=== PATIENT | male | born 1985 | race Caucasian/White ===

== ENCOUNTER 2017-11-30 15:25 | Emergency (ER) | payer BC, SELFPAY ==
[2017-11-30 15:59] VITALS: BP 142/73; PULSE 76; RESP 20; TEMP 36.9; O2SAT 97; BMI 28.8
--- NOTE | 2017-11-30 17:24 | HMH.EDUTC ---
[facility] – [place] Clinical Impression: History of herpes genitalis Herpes zoster Qualifiers: Herpes zoster complications: without complications Qualified Code(s): B02.9 - Zoster without complications Disposition: Home, Self-Care Condition on Discharge: Good Instructions: DI for Shingles, DI for Genital Herpes Additional Instructions: Read attached education Start anti-viral DANIELE. the sooner you start it the more effective it can be. Discussed transmission. Remember how to protect yourself and others. Avoid contact with the high risk population we discussed. we have provided you with a list of providers accepting patients. I would encourage you find him a new primary care provider and make an appt DANIELE as it can take weeks to get a new patient appointment. In the meantime, follow up in the clinic or ER for new, worsening or persistent symptoms. There is medication you can take daily to decrease outbreaks of genital herpes. You need to see a primary care provider for this. Prescriptions: Valacyclovir HCl [Valacyclovir] 1,000 mg PO Q8H #21 tab Time of Disposition: 17:46 Medical Decision Making Vital Signs: 11/30/17 15:59 11/30/17 17:53 Temperature 98.4 F 97.9 F Temperature Source Temporal Artery Scan Pulse Rate 76 Pulse Rate [Right Radial] 76 Respiratory Rate 20 16 Blood Pressure 130/68 Blood Pressure [Right Arm] 142/73 Blood Pressure Mean [Right Arm] 96 Blood Pressure Position [Right Arm] Sitting 02 Sat by Pulse Oximetry 97 Oxygen Delivery Method Room Air Room Air - Cali Inquiry Pt receiving controlled substance: No [facility] [place] HPI - General Stated complaint: rash on side Time Seen by Provider: 11/30/17 17:24 Mode of Arrival: Family Vehicle Source of Information: Patient Limitations: No Limitations Description of Symptoms (Recalled from Triage Doc. by RN): PT C/O RASH ON RIGHT SIDE OF BODY. HEENT Symptoms (Recalled from RN notes): No Resp Symptoms (Recalled from RN notes): No Skin Symptoms (Recalled from RN notes): Yes (RASH ON RIGHT SIDE OF BODY) MS Symptoms (Recalled from RN notes): No Functional Status (Recalled from RN notes): NA - History of Present Illness Provider Complaint: c/o rash to right flank first noticed yesterday. uncomfortable and a little itchy . Mother thinks it is shingles. wonders if could be related to history of genital herpes because appears similar to those. Denies any current outbreak. Approx 3-4 outbreaks a year. Never takes medications for outbreaks. No PCP. Typically before outbreaks, right gorin lymphnode is tender . Noticed that day before yesterday but rather than gential rash, noticed flank rash. No treatment before arrival. Had chicken pox as a child. No new contacts, foods, medications. No one else with rash. Initially denied any recent trauma or stress but then recalled repeated low back strains over the last 2-3 months with most recent on Saturday. - Related Data Home Medications Medication Instructions Recorded Confirmed Levothyroxine Sodium 200 mcg PO DAILY 11/30/17 11/30/17 [Levothyroxine 200mcg (0.2mg) Tab] Previous Rx's Medication Instructions Recorded Valacyclovir HCl [Valacyclovir] 1,000 mg PO Q8H #21 tab 11/30/17 Allergies Allergy/AdvReac Type Severity Reaction Status Date / Time No Known Allergies Allergy Verified 11/30/17 15:46 - Worker's Comp Is this a Worker's Comp case?: No [facility] History I have reviewed the patient's past medical history: Yes Other Medical History: Reports: Hypothyroidism, Other (genital herpes) Other Surgeries: Yes: Other (partial thyroidectomy) - *Social History Smoking Status: Never smoker Alcohol Intake: never - Psychiatric History Expresses thoughts of harming self/others: None Suicide Plan Description: No Plan ROS Obtained: Yes Systems reviewed as appropriate & no additional complaints - Constitutional Constitutional: Denies body ache, Denies chills, Denies fatigue, Denies fever(s), D
--- NOTE | 2017-11-30 17:38 | ED_ITS ---
[facility] [place] Clinical Impression: History of herpes genitalis Herpes zoster Qualifiers: Herpes zoster complications: without complications Qualified Code(s): B02.9 - Zoster without complications Disposition: Home, Self-Care Condition on Discharge: Good Instructions: DI for Shingles, DI for Genital Herpes Additional Instructions: Read attached education Start anti-viral DANIELE. the sooner you start it the more effective it can be. Discussed transmission. Remember how to protect yourself and others. Avoid contact with the high risk population we discussed. we have provided you with a list of providers accepting patients. I would encourage you find him a new primary care provider and make an appt DANIELE as it can take weeks to get a new patient appointment. In the meantime, follow up in the clinic or ER for new, worsening or persistent symptoms. There is medication you can take daily to decrease outbreaks of genital herpes. You need to see a primary care provider for this. Prescriptions: Valacyclovir HCl [Valacyclovir] 1,000 mg PO Q8H #21 tab Time of Disposition: 17:46 Medical Decision Making Vital Signs: 11/30/17 15:59 11/30/17 17:53 Temperature 98.4 F 97.9 F Temperature Source Temporal Artery Scan Pulse Rate 76 Pulse Rate [Right Radial] 76 Respiratory Rate 20 16 Blood Pressure 130/68 Blood Pressure [Right Arm] 142/73 Blood Pressure Mean [Right Arm] 96 Blood Pressure Position [Right Arm] Sitting 02 Sat by Pulse Oximetry 97 Oxygen Delivery Method Room Air Room Air - Cali Inquiry Pt receiving controlled substance: No [facility] [place] - General Stated complaint: rash on side Time Seen by Provider: 11/30/17 17:24 Mode of Arrival: Family Vehicle Source of Information: Patient Limitations: No Limitations Description of Symptoms (Recalled from Triage Doc. by RN): PT C/O RASH ON RIGHT SIDE OF BODY. HEENT Symptoms (Recalled from RN notes): No Resp Symptoms (Recalled from RN notes): No Skin Symptoms (Recalled from RN notes): Yes (RASH ON RIGHT SIDE OF BODY) MS Symptoms (Recalled from RN notes): No Functional Status (Recalled from RN notes): NA - History of Present Illness Provider Complaint: c/o rash to right flank first noticed yesterday. uncomfortable and a little itchy . Mother thinks it is shingles. wonders if could be related to history of genital herpes because appears similar to those. Denies any current outbreak. Approx 3-4 outbreaks a year. Never takes medications for outbreaks. No PCP. Typically before outbreaks, right gorin lymphnode is tender . Noticed that day before yesterday but rather than gential rash, noticed flank rash. No treatment before arrival. Had chicken pox as a child. No new contacts, foods, medications. No one else with rash. Initially denied any recent trauma or stress but then recalled repeated low back strains over the last 2-3 months with most recent on Saturday. - Related Data Home Medications Medication Instructions Recorded Confirmed Levothyroxine Sodium 200 mcg PO DAILY 11/30/17 11/30/17 [Levothyroxine 200mcg (0.2mg) Tab] Previous Rx's Medication Instructions Recorded Valacyclovir HCl [Valacyclovir] 1,000 mg PO Q8H #21 tab 11/30/17 Allergies Allergy/AdvReac Type Severity Reaction Status Date / Time No Known Allergies Allergy Verified 11/30/17 15:46 - Worker's Comp Is this a Work
[2017-11-30 17:53] VITALS: BP 130/68; PULSE 76; RESP 16; TEMP 36.6; O2SAT 100
== END 2017-11-30 17:55 | disposition home or self-care (01) ==
PROVIDERS: Emergency Provider Nurse Practitioner Family
DX: B02.9 Zoster without complications (principal)
CPT/HCPCS: 99201

== ENCOUNTER 2018-06-12 09:00 | Outpatient (RCR) | payer BC, SELFPAY | END 2018-06-12 09:01 | disposition home or self-care (01) | LOC: PT 09:00 | PROVIDERS: Visit Provider Orthopaedic Surgery | DX: M54.5 Low back pain (principal) | CPT/HCPCS: 97010; 97014; 97033; 97110; 97140; 97163; 97164; G0283 ==

== ENCOUNTER → 2018-06-25 08:54 | Outpatient (REF) | payer BC, SELFPAY ==
[2018-06-25 14:04] LABS: Basophils % 0.3 % (0.1-2.0); Eosinophils # 0.4 K/mm3 (0.0-0.4); Eosinophils % 6.9 % (0.1-12.0); Hematocrit 47.6 % (42.0-52.0); Hemoglobin 16.2 g/dL (14.1-18.0); Lymphocytes # 1.2 K/mm3 (0.7-4.5); Lymphocytes % 23.1 K/mm3 (10-50); Mean Corpuscular Hemoglobin 30.4 pg (27.0-31.2); Mean Corpuscular Volume 89.5 fl (80-94); Mean Platelet Volume 7.4 fl (7.4-10.4); Monocytes # 0.4 K/mm3 (0.1-1.0); Monocytes % 8.4 % (1.7-9.3); Neutrophils # 3.2 K/mm3 (1.8-7.8); Neutrophils % 61.3 % (37.0-80.0); Platelet Count 267 K/mm3 (142-424); Red Blood Count 5.31 M/mm3 (4.60-6.20); White Blood Count 5.3 K/mm3 (4.8-10.8)
[2018-06-25 14:14] LABS: Alanine Aminotransferase 35 U/L (12-78); Albumin Level 4.3 gm/dL (3.4-5.0); Albumin/Globulin Ratio 1.3 (1.1-1.8); Alkaline Phosphatase 64 U/L (46-116); Anion Gap 13.4 mEq/L (5-15); Aspartate Amino Transferase 13 U/L (15-37); Bilirubin,Total 0.7 mg/dL (0.2-1.0); Blood Urea Nitrogen 11 mg/dL (7-18); Calcium 9.7 mg/dL (8.5-10.1); Carbon Dioxide 29 mmol/L (21.0-32.0); Chloride 104 mmol/L (98-107); Chol/HDL Ratio 3.4 (1-3.5); Cholesterol 127 mg/dL (140-200); Creatinine,Serum 1.13 mg/dL (0.70-1.30); Estimated Glomerular Filt Rate 75 ml/min (>60); GFR (African American) 90 ML/MIN (>60); Globulin 3.3 gm/dl (1.3-3.2); Glucose 73 mg/dL (74-106); HDL Cholesterol 37 mg/dL (27-67); LDL Cholesterol 60 mg/dL (0-130); Potassium 4.4 mmoL/L (3.5-5.1); Sodium 142 mmol/L (136-145); T4 (Thyroxine) 10.5 ug/dl (4.7-13.3); Thyroid Stimulating Hormone 4.17 uIU/ml (0.358-3.740); Total Protein,Serum 7.6 gm/dL (6.4-8.2); Triglycerides 150 mg/dL (30-200); VLDL Cholesterol 30 mg/dL (0-40)
[2018-06-27 13:22] LABS: Vitamin D 25 Hydroxy 35.1 ng/mL (30.0-100.0)
== END ==
LOC: LAB 08:54
PROVIDERS: Visit Provider Physician Assistant
DX: E03.9 Hypothyroidism, unspecified (principal)
CPT/HCPCS: 80053; 80061; 82652; 84436; 84443; 85025

== ENCOUNTER → 2018-10-16 13:49 | Outpatient (CLI) | payer BC, SELFPAY ==
[2018-10-16 14:13] LABS: Basophils % 0.5 % (0.1-2.0); Eosinophils # 0.3 K/mm3 (0.0-0.4); Eosinophils % 6.3 % (0.1-12.0); Hematocrit 50.9 % (42.0-52.0); Lymphocytes # 1.5 K/mm3 (0.7-4.5); Lymphocytes % 29.9 % (10-50); Mean Corpuscular HGB Conc 33.3 g/dL (31.8-35.4); Mean Corpuscular Hemoglobin 29.7 pg (27.0-31.2); Mean Corpuscular Volume 89.1 fl (80-94); Mean Platelet Volume 7.6 fl (7.4-10.4); Monocytes # 0.3 K/mm3 (0.1-1.0); Monocytes % 6.3 % (1.7-9.3); Neutrophils # 2.9 K/mm3 (1.8-7.8); Neutrophils % 57.1 % (37.0-80.0); Platelet Count 275 K/mm3 (142-424); Red Blood Count 5.71 M/mm3 (4.60-6.20); Red Cell Distribution Width 12.8 % (11.5-17.5); White Blood Count 5.2 K/mm3 (4.8-10.8)
[2018-10-16 14:48] LABS: Alanine Aminotransferase 62 U/L (12-78); Albumin Level 4.2 gm/dL (3.4-5.0); Albumin/Globulin Ratio 1.3 (1.1-1.8); Alkaline Phosphatase 63 U/L (46-116); Anion Gap 13.6 mEq/L (5-15); Aspartate Amino Transferase 19 U/L (15-37); Bilirubin,Total 0.7 mg/dL (0.2-1.0); Blood Urea Nitrogen 18 mg/dL (7-18); Calcium 9.1 mg/dL (8.5-10.1); Carbon Dioxide 27 mmol/L (21.0-32.0); Chloride 104 mmol/L (98-107); Cholesterol 159 mg/dL (140-200); Creatinine,Serum 0.97 mg/dL (0.70-1.30); Estimated Glomerular Filt Rate 89 ml/min (>60); GFR (African American) 108 ML/MIN (>60); Globulin 3.2 gm/dl (1.3-3.2); Glucose 96 mg/dL (74-106); HDL Cholesterol 40 mg/dL (27-67); LDL Cholesterol 98 mg/dL (0-130); Potassium 4.6 mmoL/L (3.5-5.1); Sodium 140 mmol/L (136-145); T4 (Thyroxine) 9.7 ug/dl (4.7-13.3); Thyroid Stimulating Hormone 0.87 uIU/ml (0.358-3.740); Total Protein,Serum 7.4 gm/dL (6.4-8.2); Triglycerides 104 mg/dL (30-200); VLDL Cholesterol 21 mg/dL (0-40)
[2018-10-17 16:17] LABS: Prostate Specific Ag 1.2 ng/mL (0.0-4.0)
[2018-10-23 06:48] LABS: Testosterone, Total, LC/MS 426.9 ng/dL (264.0-916.0); Testosterone,Free 8.5 pg/mL (8.7-25.1)
== END ==
PROVIDERS: Visit Provider Physician Assistant
DX: R53.83 Other fatigue (principal)
CPT/HCPCS: 80053; 80061; 82652; 84153; 84154; 84402; 84403; 84436; 84443; 85025

== ENCOUNTER → 2018-10-30 09:05 | Outpatient (CLI) | payer BC, SELFPAY ==
[2018-11-01 21:53] LABS: Testosterone, Total, LC/MS 273.5 ng/dL (264.0-916.0); Testosterone,Free 5.5 pg/mL (8.7-25.1)
== END ==
PROVIDERS: Visit Provider Physician Assistant
DX: R79.89 Other specified abnormal findings of blood chemistry (principal)
CPT/HCPCS: 36415; 84402; 84403

== ENCOUNTER → 2018-12-23 10:28 | Outpatient (CLI) | payer BC, SELFPAY ==
[2018-12-23 11:58] LABS: Thyroid Stimulating Hormone 0.31 uIU/ml (0.358-3.740)
== END ==
PROVIDERS: PCP Physician Assistant; Visit Provider Internal Medicine Endocrinology, Diabetes & Metabolism
DX: E89.0 Postprocedural hypothyroidism (principal); E03.8 Other specified hypothyroidism; E29.1 Testicular hypofunction; G47.9 Sleep disorder, unspecified
CPT/HCPCS: 36415; 84436; 84439; 84443; 84481

== ENCOUNTER → 2018-12-29 12:01 | Outpatient (CLI) | payer BC, SELFPAY | PROVIDERS: PCP Physician Assistant; Visit Provider Physician Assistant | DX: R53.83 Other fatigue (principal); G47.30 Sleep apnea, unspecified | CPT/HCPCS: 95806 ==

== ENCOUNTER → 2019-02-09 08:03 | Outpatient (CLI) | payer BC, SELFPAY ==
[2019-02-09 09:40] LABS: Free T4 (Free Thyroxine) 1.36 ng/dl (0.76-1.46)
[2019-02-11 06:57] LABS: Triiodothyronine (T3) Free 3.4 pg/mL (2.0-4.4)
== END ==
PROVIDERS: Visit Provider Internal Medicine Endocrinology, Diabetes & Metabolism
DX: E89.0 Postprocedural hypothyroidism (principal); E03.8 Other specified hypothyroidism; E29.1 Testicular hypofunction
CPT/HCPCS: 36415; 84439; 84443; 84481

== ENCOUNTER → 2019-06-16 08:48 | Outpatient (CLI) | payer BC, SELFPAY ==
[2019-06-16 09:15] LABS: Basophils % 0.4 % (0.1-2.0); Eosinophils # 0.3 K/mm3 (0.0-0.4); Eosinophils % 7.1 % (0.1-12.0); Hematocrit 49.9 % (42.0-52.0); Hemoglobin 16.8 g/dL (14.1-18.0); Lymphocytes # 1.5 K/mm3 (0.7-4.5); Lymphocytes % 33.4 % (10-50); Mean Corpuscular HGB Conc 33.8 g/dL (31.8-35.4); Mean Corpuscular Hemoglobin 29.9 pg (27.0-31.2); Mean Corpuscular Volume 88.6 fl (80-94); Mean Platelet Volume 6.6 fl (7.4-10.4); Monocytes # 0.3 K/mm3 (0.1-1.0); Monocytes % 5.8 % (1.7-9.3); Neutrophils # 2.4 K/mm3 (1.8-7.8); Neutrophils % 53.3 % (37.0-80.0); Platelet Count 286 K/mm3 (142-424); Red Blood Count 5.63 M/mm3 (4.60-6.20); Red Cell Distribution Width 12.6 % (11.5-17.5); White Blood Count 4.5 K/mm3 (4.8-10.8)
[2019-06-16 09:20] LABS: Activated Partial Thrombo Time 26.6 seconds (23.6-34.0); INR 1.14 (0.9-1.1); Prothrombin Time 11.8 seconds (9.4-11.8)
[2019-06-16 11:13] LABS: Alanine Aminotransferase 55 U/L (12-78); Albumin Level 4.3 gm/dL (3.4-5.0); Albumin/Globulin Ratio 1.3 (1.1-1.8); Alkaline Phosphatase 69 U/L (46-116); Anion Gap 13.3 mEq/L (5-15); Aspartate Amino Transferase 20 U/L (15-37); Bilirubin,Total 0.6 mg/dL (0.2-1.0); Blood Urea Nitrogen 21 mg/dL (7-18); Calcium 9.3 mg/dL (8.5-10.1); Carbon Dioxide 30 mmol/L (21.0-32.0); Chloride 102 mmol/L (98-107); Creatinine,Serum 0.96 mg/dL (0.70-1.30); Estimated Glomerular Filt Rate 90 ml/min (>60); GFR (African American) 108 ML/MIN (>60); Globulin 3.3 gm/dl (1.3-3.2); Glucose 80 mg/dL (74-106); Potassium 4.3 mmoL/L (3.5-5.1); Sodium 141 mmol/L (136-145); Thyroid Stimulating Hormone 0.48 uIU/ml (0.358-3.740); Total Protein,Serum 7.6 gm/dL (6.4-8.2)
[2019-06-18 06:06] LABS: Folate 9.5 ng/mL (>3.0); Vitamin B12 870 pg/mL (232-1245)
[2019-06-18 08:52] LABS: Peripheral Smear Review Scanned Result
== END ==
PROVIDERS: Visit Provider Physician Assistant
DX: R23.8 Other skin changes (principal); R60.9 Edema, unspecified
CPT/HCPCS: 36415; 80053; 82607; 82746; 84443; 85025; 85610; 85730

== ENCOUNTER → 2019-07-28 07:06 | Outpatient (CLI) | payer BC, SELFPAY ==
[2019-07-28 08:11] LABS: Free T4 (Free Thyroxine) 1.25 ng/dl (0.76-1.46); Prostate Specific Ag Screen 1.1 ng/mL (0.0-4.0); Thyroid Stimulating Hormone 0.38 uIU/ml (0.358-3.740)
[2019-07-29 09:11] LABS: FSH 3.5 mIU/mL (1.5-12.4); LH 3.9 mIU/mL (1.7-8.6); Prolactin 10.7 ng/mL (4.0-15.2)
[2019-07-29 16:45] LABS: Estradiol 7.8 pg/mL (7.6-42.6)
[2019-07-30 06:13] LABS: Testosterone,Free 8.9 pg/mL (8.7-25.1)
[2019-08-03 01:23] LABS: Testosterone, Total, LC/MS 508.2 ng/dL (264.0-916.0)
== END ==
PROVIDERS: Visit Provider Internal Medicine Endocrinology, Diabetes & Metabolism
DX: E89.0 Postprocedural hypothyroidism (principal); E34.9 Endocrine disorder, unspecified; E29.1 Testicular hypofunction
CPT/HCPCS: 36415; 82670; 83001; 83002; 84146; 84402; 84403; 84436; 84439; 84443; 84481; G0103

== ENCOUNTER → 2020-01-28 07:15 | Outpatient (CLI) | payer BC, SELFPAY ==
[2020-01-28 09:26] LABS: Free T4 (Free Thyroxine) 2.05 ng/dl (0.78-2.19)
[2020-01-28 09:40] LABS: Thyroid Stimulating Hormone 0.03 uIU/mL (0.465-4.68)
[2020-01-29 11:31] LABS: Triiodothyronine (T3) Free 4.2 pg/mL (2.0-4.4)
== END ==
PROVIDERS: Visit Provider Internal Medicine Endocrinology, Diabetes & Metabolism
DX: E03.8 Other specified hypothyroidism (principal)
CPT/HCPCS: 36415; 84439; 84443; 84481

== ENCOUNTER → 2020-02-18 07:12 | Outpatient (CLI) | payer BC, SELFPAY ==
[2020-02-18 07:27] LABS: Basophils % 0.7 % (0.1-2.0); Eosinophils # 0.3 K/mm3 (0.0-0.4); Eosinophils % 5.6 % (0.1-12.0); Hematocrit 45.9 % (42.0-52.0); Hemoglobin 16.2 g/dL (14.1-18.0); Lymphocytes # 1.8 K/mm3 (0.7-4.5); Lymphocytes % 34.3 % (10-50); Mean Corpuscular HGB Conc 35.2 g/dL (31.8-35.4); Mean Corpuscular Hemoglobin 30.7 pg (27.0-31.2); Mean Corpuscular Volume 87.1 fl (80-94); Mean Platelet Volume 7.5 fl (7.4-10.4); Monocytes # 0.3 K/mm3 (0.1-1.0); Monocytes % 6.2 % (1.7-9.3); Neutrophils # 2.7 K/mm3 (1.8-7.8); Neutrophils % 53.2 % (37.0-80.0); Platelet Count 282 K/mm3 (142-424); Red Blood Count 5.28 M/mm3 (4.60-6.20); Red Cell Distribution Width 12.5 % (11.5-17.5); White Blood Count 5.2 K/mm3 (4.8-10.8)
[2020-02-18 08:39] LABS: Erythrocyte Sedimentation Rate 4 mm/hr (0-15)
[2020-02-18 10:14] LABS: Chloride 103 mmol/L (98-107); Potassium 4.6 mmoL/L (3.5-5.1); Sodium 139 mmol/L (136-145)
[2020-02-18 10:17] LABS: Alanine Aminotransferase 47 U/L (12-78); Albumin Level 4.6 g/dl (3.5-5.0); Albumin/Globulin Ratio 1.8 (1.1-1.8); Alkaline Phosphatase 54 U/L (38-126); Anion Gap 15.6 mEq/L (5-15); Aspartate Amino Transferase 30 U/L (17-59); Bilirubin,Total 0.4 mg/dl (0.2-1.3); Blood Urea Nitrogen 17 mg/dl (9-20); Carbon Dioxide 25 mmol/L (22.0-30.0); Estimated Glomerular Filt Rate 86 ml/min (>60); GFR (African American) 103 ML/MIN (>60); Globulin 2.6 g/dL (1.3-3.2); Total Protein,Serum 7.2 g/dl (6.3-8.2); Uric Acid 7.4 mg/dl (3.5-8.5)
[2020-02-18 10:18] LABS: Calcium 9.8 mg/dl (8.4-10.2); Glucose 86 mg/dl (74-100)
[2020-02-18 10:23] LABS: C-Reactive Protein 2.2 mg/L (0-4)
[2020-02-18 10:48] LABS: Thyroid Stimulating Hormone 0.16 uIU/mL (0.465-4.68)
== END ==
PROVIDERS: Visit Provider Physician Assistant
DX: M79.671 Pain in right foot (principal)
CPT/HCPCS: 36415; 80053; 84443; 84550; 85025; 85651; 86140

== ENCOUNTER → 2020-03-14 13:55 | Outpatient (CLI) | payer BC, SELFPAY ==
--- NOTE | 2020-03-14 14:00 | XR_ITS ---
PROCEDURE: XR FOOT WT BEARING LT 3V CLINICAL INDICATION: pain COMPARISON: XR FOOT RT MIN 3V from 12/15/2019 FINDINGS: No fracture or dislocation. No lytic or blastic change. There is normal mineralization. The joint spaces are well-preserved. No significant degenerative/arthritic changes. No erosive changes evident. Other findings:None. IMPRESSION: No acute findings. Dictated by: Garfield Carrera MD 03/14/2020 14:46 Electronically signed by Garfield Carrera MD in [place] 03/14/2020 14:46
--- NOTE | 2020-03-14 14:00 | XR_ITS ---
PROCEDURE: XR FOOT WT BEARING RT 3V CLINICAL INDICATION: pain COMPARISON: XR FOOT RT MIN 3V from 12/15/2019 FINDINGS: No fracture or dislocation. No lytic or blastic change. There is normal mineralization. The joint spaces are well-preserved. No significant degenerative/arthritic changes. No erosive changes evident. Other findings:None. IMPRESSION: No acute findings. Dictated by: Garfield Carrera MD 03/14/2020 14:54 Electronically signed by Garfield Carrera MD in [place] 03/14/2020 14:54
== END ==
PROVIDERS: PCP Physician Assistant; Visit Provider Podiatrist
DX: M79.672 Pain in left foot (principal); M79.671 Pain in right foot
CPT/HCPCS: 73630

== ENCOUNTER → 2020-07-19 15:10 | Outpatient (CLI) | payer BC, SELFPAY ==
[2020-07-19 16:13] LABS: Free T4 (Free Thyroxine) 1.63 ng/dl (0.78-2.19)
[2020-07-19 16:27] LABS: Thyroid Stimulating Hormone 0.29 uIU/mL (0.465-4.68)
[2020-07-21 11:51] LABS: Triiodothyronine (T3) Free 3.6 pg/mL (2.0-4.4)
== END ==
PROVIDERS: Visit Provider Internal Medicine Endocrinology, Diabetes & Metabolism
DX: R94.6 Abnormal results of thyroid function studies (principal)
CPT/HCPCS: 36415; 84439; 84443; 84481

== ENCOUNTER → 2020-08-30 12:43 | Outpatient (CLI) | payer BC, SELFPAY ==
[2020-08-30 15:27] LABS: T4 (Thyroxine) 9.6 ug/dl (5.53-11.0)
[2020-08-30 15:28] LABS: Free T4 (Free Thyroxine) 1.35 ng/dl (0.78-2.19)
[2020-08-30 15:41] LABS: Thyroid Stimulating Hormone 3.42 uIU/mL (0.465-4.68)
[2020-08-30 17:01] LABS: Coronavirus 19 IgG Antibody Positive (Negative); Coronavirus 19 IgM Antibody Negative (Negative)
[2020-09-01 11:47] LABS: Triiodothyronine (T3) Free 3.1 pg/mL (2.0-4.4)
== END ==
PROVIDERS: PCP Internal Medicine Endocrinology, Diabetes & Metabolism; Visit Provider Physician Assistant
DX: E89.0 Postprocedural hypothyroidism (principal); R94.6 Abnormal results of thyroid function studies
CPT/HCPCS: 36415; 84436; 84439; 84443; 84481; 86328

== ENCOUNTER → 2021-02-24 08:05 | Outpatient (CLI) | payer BC, SELFPAY ==
[2021-02-24 09:22] LABS: Free T4 (Free Thyroxine) 1.31 ng/dl (0.78-2.19)
[2021-02-24 09:36] LABS: Thyroid Stimulating Hormone 4.33 uIU/mL (0.465-4.68)
[2021-02-26 06:34] LABS: Triiodothyronine (T3) Free 3.2 pg/mL (2.0-4.4)
== END ==
PROVIDERS: Visit Provider Internal Medicine Endocrinology, Diabetes & Metabolism
DX: E89.0 Postprocedural hypothyroidism (principal)
CPT/HCPCS: 36415; 84439; 84443; 84481

== ENCOUNTER → 2021-04-03 11:34 | Outpatient (CLI) | payer BC, SELFPAY ==
[2021-04-03 12:04] LABS: Basophils % 0.3 % (0.1-2.0); Eosinophils # 0.3 K/mm3 (0.0-0.4); Eosinophils % 5.6 % (0.1-12.0); Hematocrit 47.1 % (42.0-52.0); Hemoglobin 16.5 g/dL (14.1-18.0); Lymphocytes # 1.7 K/mm3 (0.7-4.5); Lymphocytes % 30.2 % (10-50); Mean Corpuscular HGB Conc 35.1 g/dL (31.8-35.4); Mean Corpuscular Hemoglobin 30.3 pg (27.0-31.2); Mean Corpuscular Volume 86.3 fl (80-94); Mean Platelet Volume 7.5 fl (7.4-10.4); Monocytes # 0.4 K/mm3 (0.1-1.0); Monocytes % 6.7 % (1.7-9.3); Neutrophils # 3.1 K/mm3 (1.8-7.8); Neutrophils % 57.1 % (37.0-80.0); Platelet Count 261 K/mm3 (142-424); Red Blood Count 5.46 M/mm3 (4.60-6.20); Red Cell Distribution Width 12.7 % (11.5-17.5); White Blood Count 5.5 K/mm3 (4.8-10.8)
[2021-04-03 12:29] LABS: Chloride 104 mmol/L (98-107); Potassium 4.4 mmoL/L (3.5-5.1); Sodium 139 mmol/L (136-145)
[2021-04-03 12:31] LABS: Blood Urea Nitrogen 13 mg/dl (9-20); Estimated Glomerular Filt Rate 110 ml/min (>60); GFR (African American) 133 ML/MIN (>60)
[2021-04-03 12:32] LABS: Alanine Aminotransferase 27 U/L (12-78); Albumin Level 4.8 g/dl (3.5-5.0); Albumin/Globulin Ratio 1.7 (1.1-1.8); Alkaline Phosphatase 50 U/L (38-126); Anion Gap 13.4 mEq/L (5-15); Aspartate Amino Transferase 25 U/L (17-59); Bilirubin,Total 0.4 mg/dl (0.2-1.3); Calcium 9.3 mg/dl (8.4-10.2); Carbon Dioxide 26 mmol/L (22.0-30.0); Chol/HDL Ratio 3.7 (1-3.5); Cholesterol 156 mg/dl (140-200); Globulin 2.8 g/dL (1.3-3.2); Glucose 93 mg/dl (74-100); HDL Cholesterol 42 mg/dl (40-60); Total Protein,Serum 7.6 g/dl (6.3-8.2); Triglycerides 131 mg/dl (30-150); VLDL Cholesterol 26 mg/dL (0-40)
[2021-04-03 12:43] LABS: Direct LDL Cholesterol 90.65 mg/dL (100-129)
[2021-04-03 12:50] LABS: T4 (Thyroxine) 9.8 ug/dl (5.53-11.0)
[2021-04-03 13:03] LABS: Thyroid Stimulating Hormone 3.19 uIU/mL (0.465-4.68)
[2021-04-03 13:39] LABS: Coronavirus 19 IgG Antibody Negative (Negative); Coronavirus 19 IgM Antibody Negative (Negative)
== END ==
PROVIDERS: Visit Provider Physician Assistant
DX: R07.9 Chest pain, unspecified (principal); R42 Dizziness and giddiness; E03.9 Hypothyroidism, unspecified
CPT/HCPCS: 80053; 80061; 84436; 84443; 85025; 86328

== ENCOUNTER → 2021-04-06 09:05 | Outpatient (CLI) | payer BC, SELFPAY ==
--- NOTE | 2021-04-06 09:08 | XR_ITS ---
PROCEDURE: XR CHEST 2V CLINICAL HISTORY: chest pain COMPARISON: CR LS5 LUMBAR SPINE 5 VIEWS from 04/09/2016 FINDINGS: The cardiomediastinal silhouette and pulmonary vascularity are within normal limits. The lungs are clear without infiltrates, suspicious nodules, or pleural effusions. Minimal thoracic curvature convex right. IMPRESSION: No acute findings. Dictated by: Garfield Carrera MD 04/06/2021 10:29 Garfield Carrera MD in [place] 04/06/2021 10:29
--- NOTE | 2021-04-06 09:45 | ECG_ITS ---
APPROVED REPORT Exam: Resting ECG HR:66 bpm ECG Measurements Heart Rate 66 AXES UT 166 P 25 QRSd 98 QRS 83 QT 380 T 51 QTc 398 Conclusion Normal sinus rhythm Normal ECG Electronically signed by : Hood Mccoy, 04/08/2021 10:59:31
== END ==
PROVIDERS: PCP Physician Assistant; Visit Provider Physician Assistant
DX: R07.9 Chest pain, unspecified (principal)
CPT/HCPCS: 71046; 93005

== ENCOUNTER → 2021-05-02 09:46 | Outpatient (CLI) | payer BC, SELFPAY ==
--- NOTE | 2021-05-02 09:47 | CA_ITS ---
APPROVED REPORT Transport Aide: DEEDEE Laterality: Bilateral Study Quality: Good Indications: vertigo Risk Factors previous smoker, chest pain Doppler Spectral Velocity Analysis ECA (R) 92.50/19.30 cm/s ECA (L) 91.30/15.00 cm/s dICA (R) 82.20/36.00 cm/s dICA (L) 73.20/34.00 cm/s Ritu (R) 73.80/27.00 cm/s Ritu (L) 74.50/36.60 cm/s pICA (R) 77.10/21.80 cm/s pICA (L) 61.00/30.20 cm/s dCCA (R) 92.50/28.30 cm/s dCCA (L) 86.00/20.20 cm/s pCCA (R) 111.40/20.60 cm/s pCCA (L) 116.00/27.70 cm/s Vert (R) 44.90/12.80 cm/s Vert (L) 52.70/21.80 cm/s ICA/CCA 0.89 ICA/CCA 0.87 Findings Duplex evaluation demonstrates no evidence of stenosis in the bilateral internal carotid arteries. Duplex evaluation demonstrates antegrade flow of the bilateral Vertebral Arteries. Conclusion Duplex evaluation demonstrates no evidence of stenosis in the bilateral internal carotid arteries. Duplex evaluation demonstrates antegrade flow of the bilateral Vertebral Arteries. Electronically signed by : Garfield Carrera MD 05/02/2021 15:53:09
--- NOTE | 2021-05-02 09:47 | CA_ITS ---
APPROVED REPORT Exam: Exercise Treadmill Technologist: Daly Carrillo, Ht: 6 ft 2 in Wt: 234 lbs BSA: 2.32 m2 HR: 80 bpm BP: 123/78 mmHg Rhythm: NSR,RIGHTWARD AXIS,T WAVE ABNS IN LEADS III,aVF,PVC Medical History Medications: Valtrex,,,,, LevothRYROXINE,,,,, Stress Test Details Test: Jj HR Resting HR: 89 bpm Max Heart Rate (APMHR): 185.946795 bpm Max HR Achieved: 170 bpm Target HR (85% APMHR): 157.008717 bpm % of APMHR: 91.89 Recovery HR: 142 bpm BP Resting BP: 129.0/86.0 mmHg Max BP: 200.0/80.0 mmHg Recovery BP: 164.0/70.0 mmHg ECG Clinical Exercise duration: 10:20 min Highest Stage Achieved: Exercise capacity: 12.8 METs Stress ECG Conclusion EXERCISED 10:20 ON JJ PROTOCOL WITH MAX HR 170 BPM WHICH IS 92% OF PM FOR AGE. MAX BP 200/80. METS =12.8. TEST STOPPED DUE TO SOA. NO CP. OCCASIONAL PVC. EXAGGERATION OF BAELINE T WAVE ABNORMALITIES. OTHERWISE NORMAL ST RESPONSE. PROBABLY NORMAL GXT. GXT ONLY(NO IMAGING) Electronically signed by : Hood Mccoy, 05/02/2021 17:43:07
== END ==
PROVIDERS: PCP Physician Assistant; Visit Provider Physician Assistant
DX: R07.9 Chest pain, unspecified (principal); R42 Dizziness and giddiness
CPT/HCPCS: 93017; 93306; 93880

== ENCOUNTER → 2021-05-16 08:00 | Outpatient (CLI) | payer BC, SELFPAY ==
--- NOTE | 2021-05-16 | CA_ITS ---
APPROVED REPORT Exam: Exercise Treadmill Technologist: Itzel Morelos, Ht: 6 ft 2 in Wt: 238 lbs BSA: 2.34 m2 HR: 68 bpm BP: 110/78 mmHg Rhythm: NSR, T wave abn lead 3, rightward axis Medical History Medications: Levothyroxine,,,,, ValACYCLOVIR,,,,, Stress Test Details Test: Ab HR Resting HR: 77 bpm Max Heart Rate (APMHR): 185.724822 bpm Max HR Achieved: 158 bpm Target HR (85% APMHR): 157.791382 bpm % of APMHR: 85.41 Recovery HR: 116 bpm BP Resting BP: 110/78 mmHg Max BP: 166/70 mmHg Recovery BP: 166.0/70.0 mmHg ECG Resting ECG: NSR, T wave abn lead 3, rightward axis Clinical Exercise duration: 10:32 min Highest Stage Achieved: Exercise capacity: 12.8 METs Stress ECG Conclusion Exercised 10:30 on ab protocol. No CP noted. Occasional PVC and PAC. Mild exaggeration of baseline abn in lead 3. Otherwise normal ST response to exercise. Normal GXT. Myoview images reported separately. Test Summary Stage 3 01:00 14.0 3.4 127 . . . . REST . . . . . . . Sitting REST 05:27 0.0 0.0 77 . 110/ 78 . . Stage 1 01:00 10.0 1.7 94 . . . . Stage 1 02:00 10.0 1.7 100 . . . . Stage 1 03:00 10.0 1.7 96 . 142/ 70 . . Stage 2 01:00 12.0 2.5 105 . . . . Stage 2 02:00 12.0 2.5 111 . . . . Stage 2 03:00 12.0 2.5 113 . 158/ 72 . . Stage 3 01:00 14.0 3.4 127 . . . . Stage 3 02:00 14.0 3.4 138 . . . . Stage 3 . . . . . . . Cardiolite injected Stage 3 03:00 14.0 3.4 132 . 164/ 70 . . Stage 4 01:00 16.0 4.2 151 . . . . Stage 4 01:32 16.0 4.2 156 . . . Stop exercise at 10:32 RECOVERY 01:00 0.0 0.0 108 . . . . RECOVERY 02:00 0.0 0.0 99 . 166/ 70 . . RECOVERY 03:00 0.0 0.0 106 . 136/ 82 . . RECOVERY 04:00 0.0 0.0 92 . 136/ 82 . . RECOVERY 05:00 0.0 0.0 97 . 123/ 84 . . RECOVERY 05:23 0.0 0.0 99 . 123/ 84 . . Electronically signed by : Michael Jones, 05/16/2021 18:22:58
--- NOTE | 2021-05-16 08:04 | NM_ITS ---
APPROVED REPORT Exam: Nuclear Stress Test Indication: chest pain6 Patient Location: Outpatient Stress Tech: Itzel Morelos [place] Tech:Cher AnMIKEY RT(R)(N) Ht: 6 ft 2 in Wt: 240 lbs HR: 77 bpm BP: 110/78 mmHg BSA: 2.35 m2 BMI: 30.8 Procedure: Patient exercised on Jj protocol 10:32 minutes and sec, resting heart rate 77 bpm, resting blood pressure 110/78 mmHg, with exercise maximum heart rate achived was 158 bpm which is Greater than 85 % of the maximum predicted heart rate and blood pressure was 166/70 mmHg. Patient denied any complaint of chest pain. Patient has Good exercise capacity, achieved 12.8 METs of workload on treadmill, the blood pressure response to exercise was Adequate. Electrocardiogram Resting electrocardiogram showed sinus rhythm, with exercise there is less than 1.[address] segment depression noted from the baseline EKG. The EKG portion of the exercise Myoview is negative for ischemia. Cardiac Stress and Resting SPECT Images: Cardiac Stress and Resting SPECT images were obtained using technetium 99m Myoview 32.2 mCi stress and 9.64 mCi at rest. Gated SPECT for analysis of segmental wall motion and calculation of the ejection fraction also done, prone images were also obtained. Cardiac stress and resting SPECT images show uniform myocardial activity without segmental perfusion abnormality, computer derived ejection fraction is 47% with no regional wall motion abnormality, right ventricle is normal size and contractility. Conclusion: 1. The EKG portion of the exercise Myoview is negative for ischemia, patient has good exercise capacity achieved 12.8 mets of workload on treadmill, the blood pressure response to exercise was adequate, there was no exercise-induced chest discomfort. 2. No scintigraphic evidence of reversible ischemia seen, computer derived ejection fraction is 47% with no regional wall motion abnormality, right ventricle is normal size and contractility. 3. Normal exercise Myoview study. Electronically signed by : Michael Jones, 05/16/2021 18:30:38
== END ==
PROVIDERS: PCP Physician Assistant; Visit Provider Urology
DX: R07.9 Chest pain, unspecified (principal); R42 Dizziness and giddiness; R94.39 Abnormal result of other cardiovascular function study
CPT/HCPCS: 78452; 93017; A9502

== ENCOUNTER → 2022-03-02 16:28 | Outpatient (CLI) | payer BC, SELFPAY ==
[2022-03-02 17:36] LABS: Free T4 (Free Thyroxine) 1.39 ng/dl (0.78-2.19)
[2022-03-02 17:50] LABS: Thyroid Stimulating Hormone 5.08 uIU/mL (0.465-4.68)
[2022-03-04 07:09] LABS: Triiodothyronine (T3) Free 2.9 pg/mL (2.0-4.4)
== END ==
PROVIDERS: Visit Provider Internal Medicine Endocrinology, Diabetes & Metabolism
DX: E89.0 Postprocedural hypothyroidism (principal)
CPT/HCPCS: 36415; 84439; 84443; 84481

== ENCOUNTER → 2022-09-11 16:24 | Outpatient (CLI) | payer BC, SELFPAY ==
[2022-09-11 19:40] LABS: Free T4 (Free Thyroxine) 1.36 ng/dl (0.78-2.19)
[2022-09-11 19:54] LABS: Thyroid Stimulating Hormone 0.35 uIU/mL (0.465-4.68)
[2022-09-13 08:21] LABS: Triiodothyronine (T3) Free 4.1 pg/mL (2.0-4.4)
== END ==
PROVIDERS: PCP Physician Assistant; Visit Provider Internal Medicine Endocrinology, Diabetes & Metabolism
DX: E89.0 Postprocedural hypothyroidism (principal)
CPT/HCPCS: 36415; 84439; 84443; 84481

== ENCOUNTER → 2022-11-07 08:54 | Outpatient (CLI) | payer BC, OTHER, SELFPAY | PROVIDERS: PCP Physician Assistant; Visit Provider Physician Assistant | DX: R42 Dizziness and giddiness (principal); E89.0 Postprocedural hypothyroidism | CPT/HCPCS: 93225; 93226 ==

== ENCOUNTER → 2022-11-10 08:22 | Outpatient (CLI) | payer BC, OTHER, SELFPAY ==
--- NOTE | 2022-11-10 08:44 | XR_ITS ---
PROCEDURE INFORMATION: Exam: XR Left Hip Exam date and time: 11/10/2022 8:45 AM Age: 37 years old Clinical indication: Hip pain; Left hip; Additional info: Left hip pain TECHNIQUE: Imaging protocol: Radiologic exam of the Left hip. Views: 2 or 3 views hip with pelvis when performed. COMPARISON: CR LS5 LUMBAR SPINE 5 VIEWS 04/09/2016 12:15 PM FINDINGS: Bones/joints: There is no evidence of acute fracture.There is no evidence of malalignment or dislocation. Soft tissues: Unremarkable. IMPRESSION: There is no evidence of acute fracture.There is no evidence of malalignment or dislocation.
[2022-11-10 08:46] LABS: Basophils % 0.8 % (0.1-2.0); Eosinophils # 0.4 K/mm3 (0.0-0.4); Eosinophils % 6.7 % (0.1-12.0); Hematocrit 48.1 % (42.0-52.0); Lymphocytes # 1.6 K/mm3 (0.7-4.5); Lymphocytes % 29.3 % (10-50); Mean Corpuscular HGB Conc 33.3 g/dL (31.8-35.4); Mean Corpuscular Hemoglobin 29.6 pg (27.0-31.2); Mean Corpuscular Volume 88.8 fl (80-94); Mean Platelet Volume 7.4 fl (7.4-10.4); Monocytes # 0.3 K/mm3 (0.1-1.0); Monocytes % 4.8 % (1.7-9.3); Neutrophils # 3.2 K/mm3 (1.8-7.8); Neutrophils % 58.4 % (37.0-80.0); Platelet Count 328 K/mm3 (142-424); Red Blood Count 5.42 M/mm3 (4.60-6.20); Red Cell Distribution Width 13.1 % (11.5-17.5); White Blood Count 5.5 K/mm3 (4.8-10.8)
[2022-11-10 09:12] LABS: Alanine Aminotransferase 59 U/L (12-78); Albumin Level 4.6 g/dl (3.5-5.0); Albumin/Globulin Ratio 1.8 (1.1-1.8); Alkaline Phosphatase 56 U/L (38-126); Anion Gap 12.4 mEq/L (5-15); Aspartate Amino Transferase 33 U/L (17-59); Bilirubin,Total 0.5 mg/dl (0.2-1.3); Blood Urea Nitrogen 16 mg/dl (9-20); Calcium 9.1 mg/dl (8.4-10.2); Carbon Dioxide 29 mmol/L (22.0-30.0); Chloride 104 mmol/L (98-107); Chol/HDL Ratio 4.5 (1-3.5); Cholesterol 163 mg/dl (140-200); Estimated Glomerular Filt Rate 109 ml/min (>60); GFR (African American) 132 ML/MIN (>60); Globulin 2.5 g/dL (1.3-3.2); Glucose 95 mg/dl (74-100); HDL Cholesterol 36 mg/dl (40-60); Potassium 4.4 mmoL/L (3.5-5.1); Sodium 141 mmol/L (136-145); Total Protein,Serum 7.1 g/dl (6.3-8.2); Triglycerides 190 mg/dl (30-150); VLDL Cholesterol 38 mg/dL (0-40)
[2022-11-10 09:24] LABS: Direct LDL Cholesterol 90.96 mg/dL (100-129)
[2022-11-10 09:29] LABS: 25-OH Vitamin D, Total 25.7 ng/mL (30-100)
[2022-11-10 10:02] LABS: Vitamin B12 486 pg/mL (239-931)
== END ==
PROVIDERS: PCP Physician Assistant; Visit Provider Physician Assistant
DX: R42 Dizziness and giddiness (principal); M25.552 Pain in left hip; E55.9 Vitamin D deficiency, unspecified; Z79.899 Other long term (current) drug therapy
CPT/HCPCS: 36415; 73502; 80053; 80061; 82306; 82607; 84443; 85025

== ENCOUNTER → 2022-11-13 09:46 | Outpatient (CLI) | payer BC, OTHER, SELFPAY ==
--- NOTE | 2022-11-13 09:46 | MR_ITS ---
FINAL REPORT TECHNIQUE: Multiplanar and multisequence imaging of the brain was obtained without contrast. CLINICAL HISTORY: dizziness, unsteadiness lightheaded, dizziness x 1 year headaches behind eyes FINDINGS: The gyri and sulci are within normal limits for age. There is no mass effect or midline shift. The ventricles are symmetric in size and configuration without hydrocephalus. There are no areas of abnormal signal intensity. The cerebellum and brainstem have a normal appearance. There are no areas of restricted diffusion on diffusion weighted images to suggest acute infarct. There is mucoperiosteal thickening of all paranasal sinuses most consistent with chronic sinusitis. IMPRESSION: 1. No acute intracranial abnormality. 2. Chronic sinusitis. Reviewed, Interpreted and Dictated by Allison Aguilar MD Transcribed by Giselle Hernandez Authenticated and [facility]
--- NOTE | 2022-11-13 09:50 | XR_ITS ---
FINAL REPORT CLINICAL HISTORY: HX OF METAL IN EYES , R/O FOREIGN BODY FOR MRI FINDINGS: ORBITS Look up and look down views were obtained. No fracture is identified. The sinuses are clear. No foreign body is identified. IMPRESSION: No acute process. Reviewed, Interpreted and Dictated by Allison Aguilar MD Transcribed by Jose Dailey Authenticated and [facility]
== END ==
PROVIDERS: PCP Physician Assistant; Visit Provider Physician Assistant
DX: R42 Dizziness and giddiness (principal); H05.53 Retained (old) foreign body following penetrating wound of bilateral orbits
CPT/HCPCS: 70200; 70551

== ENCOUNTER → 2022-11-16 15:07 | Outpatient (CLI) | payer BC, OTHER, SELFPAY ==
--- NOTE | 2022-11-16 15:08 | MR_ITS ---
PROCEDURE INFORMATION: Exam: MR Left Lower Extremity Joint Without Contrast; Hip Exam date and time: 11/16/2022 3:32 PM Age: 37 years old Clinical indication: Pain; Hip; Left; Additional info: Left hip pain TECHNIQUE: Imaging protocol: Magnetic resonance imaging of the Left lower extremity joint without contrast. Exam focused on the hip. COMPARISON: CR XR HIP LT 2-3V W/PELVIS 11/10/2022 8:45 AM FINDINGS: Bones and cartilage: 9 mm probable synovial pit anterior aspect of the left femoral neck with tiny cyst just deep to this. No fracture or suspicious marrow signal. No internal derangement. Good preservation of articular cartilage. Joint spaces: No joint effusion. Labrum: Unremarkable. No tear. TENDONS: Tendons of iliopsoas group: Unremarkable. No evidence of tear. Tendons of medial compartment of thigh: Unremarkable. No evidence of tear. Tendons of lateral rotators of hip: Unremarkable. No evidence of tear. Tendons of gluteal group: Unremarkable. No evidence of tear. Muscles: Unremarkable. Soft tissues: Unremarkable. Other findings: Otherwise unremarkable. IMPRESSION: 1. 9 mm probable synovial pit anterior aspect of the left femoral neck with tiny cyst just deep to this. No fracture or suspicious marrow signal. 2. No internal derangement. Good preservation of articular cartilage. 3. Otherwise unremarkable.
== END ==
LOC: RAD 15:08 → RT 16:32
PROVIDERS: PCP Physician Assistant; Visit Provider Physician Assistant
DX: R42 Dizziness and giddiness (principal); M25.552 Pain in left hip
CPT/HCPCS: 73721; 93270

== ENCOUNTER → 2023-03-13 14:48 | Outpatient (CLI) | payer BC, SELFPAY ==
[2023-03-13 20:28] LABS: Free T4 (Free Thyroxine) 1.36 ng/dl (0.78-2.19)
[2023-03-13 20:44] LABS: Thyroid Stimulating Hormone 1.45 uIU/mL (0.465-4.68)
[2023-03-15 15:04] LABS: Triiodothyronine (T3) Free 3.4 pg/mL (2.0-4.4)
== END ==
PROVIDERS: PCP Physician Assistant; Visit Provider Internal Medicine Endocrinology, Diabetes & Metabolism
DX: E89.0 Postprocedural hypothyroidism (principal)
CPT/HCPCS: 36415; 84439; 84443; 84481

== ENCOUNTER → 2023-03-22 07:00 | Outpatient (CLI) | payer BC, SELFPAY ==
[2023-03-22 08:34] LABS: Basophils % 0.3 % (0.1-2.0); Eosinophils # 0.3 K/mm3 (0.0-0.4); Eosinophils % 6.4 % (0.1-12.0); Hematocrit 46.6 % (42.0-52.0); Hemoglobin 15.9 g/dL (14.1-18.0); Lymphocytes # 1.7 K/mm3 (0.7-4.5); Lymphocytes % 34.5 % (10-50); Mean Corpuscular HGB Conc 34.1 g/dL (31.8-35.4); Mean Corpuscular Hemoglobin 30.7 pg (27.0-31.2); Monocytes # 0.3 K/mm3 (0.1-1.0); Monocytes % 7.1 % (1.7-9.3); Neutrophils # 2.5 K/mm3 (1.8-7.8); Neutrophils % 51.7 % (37.0-80.0); Platelet Count 265 K/mm3 (142-424); Red Blood Count 5.18 M/mm3 (4.60-6.20); White Blood Count 4.8 K/mm3 (4.8-10.8)
[2023-03-22 09:42] LABS: Alanine Aminotransferase 47 U/L (12-78); Albumin Level 4.4 g/dl (3.5-5.0); Albumin/Globulin Ratio 1.9 (1.1-1.8); Alkaline Phosphatase 54 U/L (38-126); Anion Gap 16.2 mEq/L (5-15); Aspartate Amino Transferase 35 U/L (17-59); Bilirubin,Total 0.8 mg/dl (0.2-1.3); Blood Urea Nitrogen 17 mg/dl (9-20); Calcium 8.9 mg/dl (8.4-10.2); Carbon Dioxide 26 mmol/L (22.0-30.0); Chloride 103 mmol/L (98-107); Estimated Glomerular Filt Rate 95 ml/min (>60); GFR (African American) 115 ML/MIN (>60); Globulin 2.3 g/dL (1.3-3.2); Glucose 82 mg/dl (74-100); Potassium 4.2 mmoL/L (3.5-5.1); Sodium 141 mmol/L (136-145); Total Protein,Serum 6.7 g/dl (6.3-8.2)
[2023-03-22 10:13] LABS: Prostate Specific Ag Screen 1.4 ng/ml (0.0-4.0)
[2023-03-23 10:17] LABS: Estradiol 28.2 pg/mL (7.6-42.6); Prolactin 11.7 ng/mL (4.0-15.2)
[2023-03-27 18:09] LABS: Free Testosterone (Direct) 5.8 pg/mL (8.7-25.1); Testosterone, Total, LC/MS 279.2 ng/dL (264.0-916.0)
== END ==
PROVIDERS: PCP Physician Assistant; Visit Provider Internal Medicine Endocrinology, Diabetes & Metabolism
DX: E89.0 Postprocedural hypothyroidism (principal)
CPT/HCPCS: 36415; 80053; 82670; 84146; 85025; G0103

== ENCOUNTER → 2023-05-31 14:11 | Outpatient (CLI) | payer BC, SELFPAY ==
[2023-05-31 14:45] LABS: Basophils % 0.4 % (0.1-2.0); Eosinophils # 0.3 K/mm3 (0.0-0.4); Eosinophils % 5.7 % (0.1-12.0); Hematocrit 46.3 % (42.0-52.0); Hemoglobin 15.8 g/dL (14.1-18.0); Lymphocytes # 1.7 K/mm3 (0.7-4.5); Lymphocytes % 30.7 % (10-50); Mean Corpuscular HGB Conc 34.1 g/dL (31.8-35.4); Mean Corpuscular Hemoglobin 29.3 pg (27.0-31.2); Mean Corpuscular Volume 85.8 fl (80-94); Monocytes # 0.3 K/mm3 (0.1-1.0); Monocytes % 5.8 % (1.7-9.3); Neutrophils # 3.3 K/mm3 (1.8-7.8); Neutrophils % 57.4 % (37.0-80.0); Platelet Count 250 K/mm3 (142-424); Red Blood Count 5.39 M/mm3 (4.60-6.20); Red Cell Distribution Width 13.1 % (11.5-17.5); White Blood Count 5.7 K/mm3 (4.8-10.8)
[2023-05-31 15:39] LABS: Chloride 105 mmol/L (98-107)
[2023-05-31 15:40] LABS: Potassium 4.1 mmoL/L (3.5-5.1); Sodium 139 mmol/L (136-145)
[2023-05-31 15:42] LABS: Alanine Aminotransferase 32 U/L (12-78); Alkaline Phosphatase 48 U/L (38-126); Aspartate Amino Transferase 32 U/L (17-59); Bilirubin,Total 0.5 mg/dl (0.2-1.3); Blood Urea Nitrogen 14 mg/dl (9-20); Estimated Glomerular Filt Rate 75 ml/min (>60); GFR (African American) 91 ML/MIN (>60)
[2023-05-31 15:43] LABS: Albumin Level 4.2 g/dl (3.5-5.0); Albumin/Globulin Ratio 1.8 (1.1-1.8); Anion Gap 10.1 mEq/L (5-15); Calcium 9.2 mg/dl (8.4-10.2); Carbon Dioxide 28 mmol/L (22.0-30.0); Globulin 2.4 g/dL (1.3-3.2); Glucose 93 mg/dl (74-100); Total Protein,Serum 6.6 g/dl (6.3-8.2)
[2023-05-31 16:00] LABS: Free T4 (Free Thyroxine) 1.26 ng/dl (0.78-2.19)
[2023-05-31 16:14] LABS: Thyroid Stimulating Hormone 3.08 uIU/mL (0.465-4.68)
[2023-05-31 16:56] LABS: Prostate Specific Ag Screen 1.6 ng/ml (0.0-4.0)
[2023-06-02 08:35] LABS: Estradiol 21.7 pg/mL (7.6-42.6); LH 2.1 mIU/mL (1.7-8.6); Prolactin 9.2 ng/mL (4.0-15.2); Triiodothyronine (T3) Free 3.1 pg/mL (2.0-4.4)
[2023-06-08 22:51] LABS: Free Testosterone (Direct) 9.5 pg/mL (8.7-25.1); Testosterone, Total, LC/MS 442.4 ng/dL (264.0-916.0)
== END ==
PROVIDERS: PCP Physician Assistant; Visit Provider Internal Medicine Endocrinology, Diabetes & Metabolism
DX: R53.82 Chronic fatigue, unspecified (principal); R79.89 Other specified abnormal findings of blood chemistry; E89.0 Postprocedural hypothyroidism
CPT/HCPCS: 36415; 80053; 82670; 83002; 84146; 84439; 84443; 84481; 85025; G0103

== ENCOUNTER → 2023-08-06 10:05 | Outpatient (CLI) | payer BC, SELFPAY | PROVIDERS: PCP Physician Assistant; Visit Provider Podiatrist | DX: L03.032 Cellulitis of left toe (principal); L60.0 Ingrowing nail | CPT/HCPCS: 87070; 87205 ==

== ENCOUNTER → 2023-09-02 07:05 | Outpatient (CLI) | payer BC, SELFPAY ==
[2023-09-02 07:50] LABS: Basophils % 0.5 % (0.1-2.0); Eosinophils # 0.3 K/mm3 (0.0-0.4); Eosinophils % 4.5 % (0.1-12.0); Hematocrit 47.1 % (42.0-52.0); Hemoglobin 16.5 g/dL (14.1-18.0); Lymphocytes # 1.8 K/mm3 (0.7-4.5); Lymphocytes % 29.6 % (10-50); Mean Corpuscular HGB Conc 35.1 g/dL (31.8-35.4); Mean Corpuscular Hemoglobin 31.4 pg (27.0-31.2); Mean Corpuscular Volume 89.7 fl (80-94); Mean Platelet Volume 7.9 fl (7.4-10.4); Monocytes # 0.3 K/mm3 (0.1-1.0); Monocytes % 5.2 % (1.7-9.3); Neutrophils # 3.7 K/mm3 (1.8-7.8); Neutrophils % 60.4 % (37.0-80.0); Platelet Count 199 K/mm3 (142-424); Red Blood Count 5.25 M/mm3 (4.60-6.20); Red Cell Distribution Width 13.2 % (11.5-17.5); White Blood Count 6.2 K/mm3 (4.8-10.8)
[2023-09-02 08:18] LABS: Alanine Aminotransferase 31 U/L (12-78); Albumin Level 4.2 g/dl (3.5-5.0); Albumin/Globulin Ratio 1.7 (1.1-1.8); Alkaline Phosphatase 37 U/L (38-126); Anion Gap 12.6 mEq/L (5-15); Aspartate Amino Transferase 29 U/L (17-59); Bilirubin,Total 0.5 mg/dl (0.2-1.3); Blood Urea Nitrogen 13 mg/dl (9-20); Carbon Dioxide 28 mmol/L (22.0-30.0); Chloride 105 mmol/L (98-107); Estimated Glomerular Filt Rate 94 ml/min (>60); GFR (African American) 114 ML/MIN (>60); Globulin 2.5 g/dL (1.3-3.2); Glucose 97 mg/dl (74-100); Potassium 4.6 mmoL/L (3.5-5.1); Sodium 141 mmol/L (136-145); Total Protein,Serum 6.7 g/dl (6.3-8.2)
[2023-09-02 08:35] LABS: Free T4 (Free Thyroxine) 1.39 ng/dl (0.78-2.19)
[2023-09-02 08:49] LABS: Thyroid Stimulating Hormone 1.97 uIU/mL (0.465-4.68)
[2023-09-02 08:50] LABS: Prostate Specific Ag Screen 1.6 ng/ml (0.0-4.0)
[2023-09-03 08:19] LABS: Estradiol 40.9 pg/mL (7.6-42.6); LH 4.5 mIU/mL (1.7-8.6); Prolactin 9.7 ng/mL (4.0-15.2)
[2023-09-03 10:51] LABS: Triiodothyronine (T3) Free 3.2 pg/mL (2.0-4.4)
[2023-09-05 04:41] LABS: Testosterone,Free 19.9 pg/mL (8.7-25.1)
[2023-09-07 16:35] LABS: Testosterone, Total, LC/MS 731 ng/dL (.)
== END ==
LOC: LAB 07:06
PROVIDERS: PCP Physician Assistant; Visit Provider Internal Medicine Endocrinology, Diabetes & Metabolism
DX: R79.89 Other specified abnormal findings of blood chemistry (principal); R53.82 Chronic fatigue, unspecified; E89.0 Postprocedural hypothyroidism
CPT/HCPCS: 36415; 80053; 82670; 83002; 84146; 84402; 84403; 84439; 84443; 84481; 85025; G0103

== ENCOUNTER → 2023-10-23 12:10 | Outpatient (CLI) | payer BC, SELFPAY ==
[2023-10-23 12:41] LABS: Basophils % 0.5 % (0.1-2.0); Eosinophils # 0.2 K/mm3 (0.0-0.4); Eosinophils % 3.3 % (0.1-12.0); Hematocrit 47.6 % (42.0-52.0); Hemoglobin 16.6 g/dL (14.1-18.0); Lymphocytes # 1.7 K/mm3 (0.7-4.5); Lymphocytes % 29.6 % (10-50); Mean Corpuscular Hemoglobin 30.7 pg (27.0-31.2); Mean Corpuscular Volume 87.7 fl (80-94); Mean Platelet Volume 7.7 fl (7.4-10.4); Monocytes # 0.3 K/mm3 (0.1-1.0); Monocytes % 4.6 % (1.7-9.3); Neutrophils # 3.6 K/mm3 (1.8-7.8); Neutrophils % 62.1 % (37.0-80.0); Platelet Count 259 K/mm3 (142-424); Red Blood Count 5.43 M/mm3 (4.60-6.20); Red Cell Distribution Width 13.1 % (11.5-17.5); White Blood Count 5.7 K/mm3 (4.8-10.8)
[2023-10-23 13:26] LABS: Free T4 (Free Thyroxine) 1.53 ng/dl (0.78-2.19)
[2023-10-23 13:37] LABS: Thyroid Stimulating Hormone 2.53 uIU/mL (0.465-4.68)
[2023-10-24 04:41] LABS: Triiodothyronine (T3) Free 3.1 pg/mL (2.0-4.4)
[2023-11-02 16:20] LABS: Free Testosterone (Direct) 4.5 pg/mL (8.7-25.1); Testosterone, Total, LC/MS 425.6 ng/dL (264.0-916.0)
== END ==
LOC: LAB 12:11
PROVIDERS: PCP Physician Assistant; Visit Provider Internal Medicine Endocrinology, Diabetes & Metabolism
DX: E89.0 Postprocedural hypothyroidism (principal); R79.89 Other specified abnormal findings of blood chemistry
CPT/HCPCS: 36415; 84153; 84439; 84443; 84481; 85025

== ENCOUNTER 2024-03-05 06:59 | Outpatient (CLI) | payer BC, SELFPAY ==
[2024-03-05 07:23] LABS: Basophils % 0.8 % (0.1-2.0); Eosinophils # 0.2 K/mm3 (0.0-0.4); Eosinophils % 3.9 % (0.1-12.0); Hematocrit 48.7 % (42.0-52.0); Hemoglobin 16.5 g/dL (14.1-18.0); Lymphocytes # 1.6 K/mm3 (0.7-4.5); Lymphocytes % 29.8 % (10-50); Mean Corpuscular HGB Conc 33.9 g/dL (31.8-35.4); Mean Corpuscular Hemoglobin 30.7 pg (27.0-31.2); Mean Corpuscular Volume 90.7 fl (80-94); Mean Platelet Volume 7.8 fl (7.4-10.4); Monocytes # 0.3 K/mm3 (0.1-1.0); Monocytes % 6.2 % (1.7-9.3); Neutrophils # 3.1 K/mm3 (1.8-7.8); Neutrophils % 59.3 % (37.0-80.0); Platelet Count 278 K/mm3 (142-424); Red Blood Count 5.37 M/mm3 (4.60-6.20); Red Cell Distribution Width 13.5 % (11.5-17.5); White Blood Count 5.3 K/mm3 (4.8-10.8)
[2024-03-05 08:24] LABS: Free T4 (Free Thyroxine) 1.43 ng/dl (0.78-2.19)
[2024-03-05 08:40] LABS: Prostate Specific Ag, Diagnost 1.71 ng/ml (0.0-4.0); Thyroid Stimulating Hormone 0.86 uIU/mL (0.465-4.68)
[2024-03-06 08:48] LABS: Triiodothyronine (T3) Free 3.1 pg/mL (2.0-4.4)
[2024-03-10 16:12] LABS: Testosterone,Free 6.4 pg/mL (8.7-25.1)
[2024-03-12 14:17] LABS: Testosterone, Total, LC/MS 368 ng/dL (.)
== END 2024-03-05 23:59 | disposition home or self-care (01) ==
LOC: LAB 07:00
PROVIDERS: PCP Physician Assistant; Visit Provider Internal Medicine Endocrinology, Diabetes & Metabolism
DX: E89.0 Postprocedural hypothyroidism (principal); R79.89 Other specified abnormal findings of blood chemistry; E29.0 Testicular hyperfunction
CPT/HCPCS: 36415; 84153; 84402; 84403; 84439; 84443; 84481; 85025

== ENCOUNTER 2024-05-06 06:49 | Outpatient (CLI) | payer BC, SELFPAY ==
[2024-05-06 07:23] LABS: Basophils % 0.6 % (0.1-2.0); Eosinophils # 0.3 K/mm3 (0.0-0.4); Eosinophils % 5.8 % (0.1-12.0); Hematocrit 47.5 % (42.0-52.0); Hemoglobin 16.2 g/dL (14.1-18.0); Lymphocytes # 1.8 K/mm3 (0.7-4.5); Lymphocytes % 31.4 % (10-50); Mean Corpuscular HGB Conc 34.1 g/dL (31.8-35.4); Mean Corpuscular Hemoglobin 30.6 pg (27.0-31.2); Mean Corpuscular Volume 89.7 fl (80-94); Mean Platelet Volume 7.6 fl (7.4-10.4); Monocytes # 0.4 K/mm3 (0.1-1.0); Monocytes % 6.3 % (1.7-9.3); Neutrophils # 3.3 K/mm3 (1.8-7.8); Neutrophils % 55.9 % (37.0-80.0); Platelet Count 252 K/mm3 (142-424); Red Cell Distribution Width 13.5 % (11.5-17.5); White Blood Count 5.8 K/mm3 (4.8-10.8)
[2024-05-06 08:53] LABS: Prostate Specific Ag Screen 1.7 ng/ml (0.0-4.0); Thyroid Stimulating Hormone 0.49 uIU/mL (0.465-4.68)
[2024-05-06 14:11] LABS: Free T4 (Free Thyroxine) 1.55 ng/dl (0.78-2.19)
[2024-05-07 08:19] LABS: Testosterone,Total 365 ng/dL (264-916); Triiodothyronine (T3) Free 3.7 pg/mL (2.0-4.4)
== END 2024-05-06 23:59 | disposition home or self-care (01) ==
LOC: LAB 06:50
PROVIDERS: PCP Physician Assistant; Visit Provider Internal Medicine Endocrinology, Diabetes & Metabolism
DX: E89.0 Postprocedural hypothyroidism (principal); R79.89 Other specified abnormal findings of blood chemistry
CPT/HCPCS: 36415; 84403; 84439; 84443; 84481; 85025; G0103

== ENCOUNTER 2024-05-11 11:26 | Outpatient (CLI) | payer BC, SELFPAY | END 2024-05-11 23:59 | disposition home or self-care (01) | LOC: LAB.DROPOF 05-12 11:27 | PROVIDERS: PCP Student in an Organized Health Care Education/Training Program; Visit Provider Student in an Organized Health Care Education/Training Program | DX: N39.0 Urinary tract infection, site not specified (principal); B96.20 Unspecified Escherichia coli [E. coli] as the cause of diseases classified elsewhere | CPT/HCPCS: 87086; 87088; 87186 ==

== ENCOUNTER 2024-06-02 06:49 | Outpatient (CLI) | payer BC, SELFPAY ==
[2024-06-02 07:46] LABS: Fibrinogen 201 mg/dL (229.9-363.5)
[2024-06-02 08:14] LABS: C-Reactive Protein 2.6 mg/L (0-4)
[2024-06-02 08:22] LABS: D-Dimer 0.26 ug/mL (0.0-0.5)
[2024-06-03 06:06] LABS: Homocyst(e)ine 13.2 umol/L (0.0-14.5)
[2024-06-03 09:43] LABS: Ceruloplasmin 23.9 mg/dL (16.0-31.0)
[2024-06-04 07:30] LABS: Arsenic, Blood 1 ug/L (0-9)
[2024-06-15 08:18] LABS: Miscellaneous Test SCANNED IMAGE
[2024-06-17 15:41] LABS: Dehydroepiandrosterone 164
== END 2024-06-02 23:59 | disposition home or self-care (01) ==
LOC: LAB 06:51
PROVIDERS: PCP Physician Assistant; Visit Provider Family Medicine
DX: R79.82 Elevated C-reactive protein (CRP) (principal); R79.0 Abnormal level of blood mineral; R78.79 Finding of abnormal level of heavy metals in blood; T78.40XA Allergy, unspecified, initial encounter; M25.50 Pain in unspecified joint; R53.83 Other fatigue; E34.9 Endocrine disorder, unspecified; D68.59 Other primary thrombophilia; E29.1 Testicular hypofunction; G43.909 Migraine, unspecified, not intractable, without status migrainosus; G60.9 Hereditary and idiopathic neuropathy, unspecified; R25.1 Tremor, unspecified
CPT/HCPCS: 36415; 82175; 82390; 82626; 83090; 83655; 85378; 85384; 86140

== ENCOUNTER 2024-09-02 13:52 | Outpatient (CLI) | payer BC, SELFPAY ==
[2024-09-02 14:27] LABS: Basophils % 0.5 % (0.1-2.0); Eosinophils # 0.3 K/mm3 (0.0-0.4); Eosinophils % 4.8 % (0.1-12.0); Hematocrit 47.6 % (42.0-52.0); Hemoglobin 17.1 g/dL (14.1-18.0); Lymphocytes # 2.2 K/mm3 (0.7-4.5); Lymphocytes % 31.9 % (10-50); Mean Corpuscular HGB Conc 35.9 g/dL (31.8-35.4); Mean Corpuscular Hemoglobin 30.6 pg (27.0-31.2); Mean Corpuscular Volume 85.2 fl (80-94); Mean Platelet Volume 7.3 fl (7.4-10.4); Monocytes # 0.5 K/mm3 (0.1-1.0); Monocytes % 6.4 % (1.7-9.3); Neutrophils # 3.9 K/mm3 (1.8-7.8); Neutrophils % 56.3 % (37.0-80.0); Platelet Count 266 K/mm3 (142-424); Red Blood Count 5.59 M/mm3 (4.60-6.20); Red Cell Distribution Width 13.3 % (11.5-17.5)
[2024-09-02 15:16] LABS: Free T4 (Free Thyroxine) 1.39 ng/dl (0.78-2.19)
[2024-09-02 18:01] LABS: Prostate Specific Ag Screen 1.6 ng/ml (0.0-4.0); Thyroid Stimulating Hormone 0.31 uIU/mL (0.465-4.68)
[2024-09-03 12:17] LABS: Triiodothyronine (T3) Free 3.2 pg/mL (2.0-4.4)
[2024-09-14 16:19] LABS: Testosterone, Total, LC/MS 244 ng/dL (.)
== END 2024-09-02 23:59 | disposition home or self-care (01) ==
LOC: LAB 13:53
PROVIDERS: PCP Internal Medicine; Visit Provider Internal Medicine Endocrinology, Diabetes & Metabolism
DX: E89.0 Postprocedural hypothyroidism (principal); R79.89 Other specified abnormal findings of blood chemistry
CPT/HCPCS: 36415; 84403; 84439; 84443; 84481; 85025; G0103

== ENCOUNTER 2024-10-02 13:00 | Outpatient (RCR) | payer BC, SELFPAY | END 2024-10-02 23:59 | disposition home or self-care (01) | LOC: PT 13:00 | PROVIDERS: PCP Physician Assistant | DX: M25.521 Pain in right elbow (principal) | CPT/HCPCS: 97014; 97035; 97110; 97163; 97530; G0283 ==

== ENCOUNTER 2024-10-02 13:41 | Outpatient (CLI) | payer BC, OTHER, SELFPAY ==
[2024-10-02 14:21] LABS: Basophils # 0.1 K/mm3 (0-0.2); Basophils % 0.8 % (0.1-2.0); Eosinophils # 0.3 K/mm3 (0.0-0.4); Hematocrit 46.6 % (42.0-52.0); Hemoglobin 16.5 g/dL (14.1-18.0); Lymphocytes % 29.9 % (10-50); Mean Corpuscular HGB Conc 35.5 g/dL (31.8-35.4); Mean Corpuscular Volume 87.2 fl (80-94); Mean Platelet Volume 7.4 fl (7.4-10.4); Monocytes # 0.4 K/mm3 (0.1-1.0); Monocytes % 6.3 % (1.7-9.3); Neutrophils # 3.9 K/mm3 (1.8-7.8); Neutrophils % 58.9 % (37.0-80.0); Platelet Count 273 K/mm3 (142-424); Red Blood Count 5.34 M/mm3 (4.60-6.20); Red Cell Distribution Width 13.4 % (11.5-17.5); White Blood Count 6.6 K/mm3 (4.8-10.8)
[2024-10-02 14:32] LABS: C-Reactive Protein 2.1 mg/L (0-4)
[2024-10-02 14:41] LABS: Albumin Level 4.6 g/dl (3.5-5.0); Chloride 106 mmol/L (98-107); Sodium 139 mmol/L (136-145)
[2024-10-02 14:42] LABS: Potassium 4.2 mmoL/L (3.5-5.1)
[2024-10-02 14:44] LABS: Alanine Aminotransferase 57 U/L (12-78); Albumin/Globulin Ratio 1.8 (1.1-1.8); Alkaline Phosphatase 58 U/L (38-126); Anion Gap 9.2 mEq/L (5-15); Aspartate Amino Transferase 36 U/L (17-59); Bilirubin,Total 0.5 mg/dl (0.2-1.3); Blood Urea Nitrogen 16 mg/dl (9-20); Calcium 9.6 mg/dl (8.4-10.2); Carbon Dioxide 28 mmol/L (22.0-30.0); Estimated Glomerular Filt Rate 83 ml/min (>60); GFR (African American) 101 ML/MIN (>60); Globulin 2.6 g/dL (1.3-3.2); Glucose 90 mg/dl (74-100); Total Protein,Serum 7.2 g/dl (6.3-8.2)
[2024-10-02 15:07] LABS: Erythrocyte Sedimentation Rate 8 mm/hr (0-15)
[2024-10-03 09:20] LABS: RA Latex Turbid. <10.0 IU/mL (<14.0)
[2024-10-03 09:20] LABS: Homocyst(e)ine 9.8 umol/L (0.0-14.5); Testosterone,Total 161 ng/dL (264-916)
[2024-10-03 13:21] LABS: Anti-Cyclic Citrullinated Pept 8 units (0-19)
[2024-10-06 01:07] LABS: Testosterone,Free 4.7 pg/mL (8.7-25.1)
[2024-10-06 13:05] LABS: Antinuclear Antibodies, IFA Negative (.)
== END 2024-10-02 23:59 | disposition home or self-care (01) ==
LOC: LAB 13:43
PROVIDERS: Family Medicine; Visit Provider Internal Medicine Endocrinology, Diabetes & Metabolism
DX: M25.541 Pain in joints of right hand (principal); M25.542 Pain in joints of left hand; R53.83 Other fatigue; G43.909 Migraine, unspecified, not intractable, without status migrainosus; E72.19 Other disorders of sulfur-bearing amino-acid metabolism; E34.9 Endocrine disorder, unspecified
CPT/HCPCS: 36415; 80053; 83090; 84402; 84403; 85025; 85651; 86038; 86140; 86200; 86431

== ENCOUNTER → 2024-11-14 20:29 | Outpatient (CLI) | payer BC, SELFPAY | LOC: SL 20:31 | PROVIDERS: PCP Physician Assistant; Visit Provider Otolaryngology | DX: R53.83 Other fatigue (principal); R06.83 Snoring; E29.1 Testicular hypofunction | CPT/HCPCS: 95810 ==

== ENCOUNTER 2024-11-27 08:34 | Outpatient (CLI) | payer BC, OTHER, SELFPAY ==
[2024-11-27 08:52] LABS: Basophils % 0.3 % (0.1-2.0); Eosinophils # 0.4 K/mm3 (0.0-0.4); Eosinophils % 5.7 % (0.1-12.0); Hematocrit 45.5 % (42.0-52.0); Lymphocytes % 32.8 % (10-50); Mean Corpuscular HGB Conc 35.2 g/dL (31.8-35.4); Mean Corpuscular Hemoglobin 29.7 pg (27.0-31.2); Mean Corpuscular Volume 84.4 fl (80-94); Mean Platelet Volume 9.2 fl (7.4-10.4); Monocytes # 0.5 K/mm3 (0.1-1.0); Monocytes % 7.4 % (1.7-9.3); Neutrophils # 3.3 K/mm3 (1.8-7.8); Neutrophils % 53.5 % (37.0-80.0); Platelet Count 268 K/mm3 (142-424); Red Blood Count 5.39 M/mm3 (4.60-6.20); Red Cell Distribution Width 12.1 % (11.5-17.5); White Blood Count 6.1 K/mm3 (4.8-10.8)
[2024-11-27 09:41] LABS: Alanine Aminotransferase 48 U/L (12-78); Albumin Level 4.7 g/dl (3.5-5.0); Albumin/Globulin Ratio 2.5 (1.1-1.8); Alkaline Phosphatase 52 U/L (38-126); Anion Gap 13.4 mEq/L (5-15); Aspartate Amino Transferase 30 U/L (17-59); Bilirubin,Total 0.3 mg/dl (0.2-1.3); Blood Urea Nitrogen 14 mg/dl (9-20); Calcium 9.6 mg/dl (8.4-10.2); Carbon Dioxide 27 mmol/L (22.0-30.0); Chloride 105 mmol/L (98-107); Estimated Glomerular Filt Rate 108 ml/min (>60); GFR (African American) 130 ML/MIN (>60); Globulin 1.9 g/dL (1.3-3.2); Glucose 84 mg/dl (74-100); Potassium 4.4 mmoL/L (3.5-5.1); Sodium 141 mmol/L (136-145); Total Protein,Serum 6.6 g/dl (6.3-8.2)
[2024-12-03 00:08] LABS: Testosterone,Free 49.4 pg/mL (8.7-25.1)
[2024-12-04 10:32] LABS: Testosterone, Total, LC/MS 2817 ng/dL (.)
== END 2024-11-27 23:59 | disposition home or self-care (01) ==
LOC: LAB 08:37
PROVIDERS: Family Medicine; Visit Provider Otolaryngology
DX: R53.83 Other fatigue (principal); E72.19 Other disorders of sulfur-bearing amino-acid metabolism; E34.9 Endocrine disorder, unspecified; G43.909 Migraine, unspecified, not intractable, without status migrainosus
CPT/HCPCS: 36415; 80053; 83090; 84402; 84403; 85025

== ENCOUNTER 2024-12-11 07:53 | Outpatient (CLI) | payer BC, OTHER, SELFPAY ==
[2024-12-12 09:23] LABS: Estradiol 26.1 pg/mL (7.6-42.6); Testosterone,Total 341 ng/dL (264-916)
== END 2024-12-11 23:59 | disposition home or self-care (01) ==
LOC: LAB 07:54
PROVIDERS: PCP Physician Assistant; Visit Provider Internal Medicine Endocrinology, Diabetes & Metabolism
DX: R79.89 Other specified abnormal findings of blood chemistry (principal)
CPT/HCPCS: 36415; 82670; 84403

== ENCOUNTER 2025-01-07 08:54 | Outpatient (CLI) | payer BC, OTHER, SELFPAY ==
[2025-01-07 09:16] LABS: Basophils % 0.3 % (0.1-2.0); Eosinophils # 0.3 K/mm3 (0.0-0.4); Eosinophils % 4.4 % (0.1-12.0); Hematocrit 47.6 % (42.0-52.0); Hemoglobin 16.9 g/dL (14.1-18.0); Lymphocytes # 1.9 K/mm3 (0.7-4.5); Lymphocytes % 29.3 % (10-50); Mean Corpuscular HGB Conc 35.5 g/dL (31.8-35.4); Mean Corpuscular Volume 84.5 fl (80-94); Mean Platelet Volume 9.5 fl (7.4-10.4); Monocytes # 0.4 K/mm3 (0.1-1.0); Monocytes % 6.5 % (1.7-9.3); Neutrophils # 3.9 K/mm3 (1.8-7.8); Neutrophils % 59.3 % (37.0-80.0); Platelet Count 310 K/mm3 (142-424); Red Blood Count 5.63 M/mm3 (4.60-6.20); Red Cell Distribution Width 11.8 % (11.5-17.5); White Blood Count 6.6 K/mm3 (4.8-10.8)
[2025-01-07 09:51] LABS: Erythrocyte Sedimentation Rate 1 mm/hr (0-15)
[2025-01-07 09:52] LABS: C-Reactive Protein 2.6 mg/L (0-4)
[2025-01-07 10:43] LABS: Uric Acid 8.4 mg/dl (3.5-8.5)
== END 2025-01-07 23:59 | disposition home or self-care (01) ==
LOC: LAB 08:55
PROVIDERS: PCP Physician Assistant; Visit Provider Nurse Practitioner
DX: M10.9 Gout, unspecified (principal)
CPT/HCPCS: 36415; 84550; 85025; 85651; 86140

== ENCOUNTER 2025-03-04 07:01 | Outpatient (CLI) | payer BC, OTHER, SELFPAY ==
--- OUTSIDE RECORDS SUMMARY | 2025-03-04 07:03 | XMS_ITS | Data Portability ---
Author Organization [facility] ADMIN Address [address] [place] [address] Assessment No assessment recorded. Plan of Treatment Reminders Order Date Submit Date Provider Last Modified By Organization Details Last Modified Time Details Appointments None record ed. Lab None record ed. Referral None record ed. Procedures None record ed. Surgeries None record ed. Imaging None record ed. Medication Orders None record ed. Patient TargetsNo targets recorded. Patient InstructionsNo instructions recorded. Reason for Referral None Reported. Results Created Date Observation Date Name Description Value Unit Range Abnormal Flag Note LastModifiedBy Organization Detail LastModifiedTime 04/21/20 24 04/21/2024 audio gram No observ ation record ed. [email or web address] Not Available 2023 16:25:55 Result Notes None recorded. Problems Name Problem SNOMED Code Status Onset Date Resolution Date Notes Provider Name and Address Organization Details Recorded Time Bilateral subjective tinnitus of ears [id number] 104 Active 2023 JERRY SAAB, AUD 1140 Formerly [facility], [place], [address] , [facility] & [place] 16:24:24 Problem Notes None recorded. Procedures Surgical History None recorded. Imaging Results Imaging Date Name Status LastModified by Organiz ation Details LastModified Time 04/21/2024 audiogram completed [email or web address] Information no t available 04/21/2024 16:25:55 Procedure Notes None recorded. Medical Equipment None Reported. Medications Name Sig Start Date Stop Date Status Note LastModified by Organization Details LastModified Time vitamin d3 2000unit cap TAKE 1 CAPSULE BY MOUTH ONCE DAILY active Not Available Not Available No t Available doxycycline hyclate 100 mg capsule active Not Available Not Available N ot Available ondansetron HCl 4 mg tablet active Not Available Not Available Not Available sulfamethoxa zole 800 mg-trimethop rim 160 mg tablet TAKE 1 TABLET BY MOUTH EVERY 12 HOURS. START THE MORNING OF THE VASECTOMY active Not Available Not Available No t Available aspirin 81 mg tablet,delay ed release active Not Available Not Available N ot Available tramadol 50 mg tablet active Not Available Not Available No t Available oxycodone-ac etaminophen 5 mg-325 mg tablet TAKE 1 TABLET BY MOUTH EVERY 6 HOURS NEEDED FOR 3 DAYS active Not Available Not Available No t Available Euthyrox 112 mcg tablet active Not Available Not Available N ot Available omeprazole 20 mg capsule,ryan yed release active Not Available Not Available Not Available mupirocin 2 % topical ointment APPLY OINTMENT TOPICALLY TO AFFECTED AREA TWICE DAILY FOR CELLULITIS FOR 3 WEEKS active Not Available Not Available Not Available ergocalcifer ol (vitamin D2) 1,250 mcg (50,000 unit) capsule TAKE 1 CAPSULE BY MOUTH ONCE A WEEK active Not Available Not Available No t Available diazepam 10 mg tablet TAKE 1 TABLET ONE HOUR BEFORE THE VASECTOMY active Not Available Not Available No t Available doxycycline hyclate 100 mg tablet active Not Available Not Available No t Available Clomid 50 mg tablet TAKE 1 TABLET BY MOUTH ONCE DAILY active Not Available Not Available No t Available naproxen 500 mg tablet active Not Available Not Available No t Available oxycodone 5 mg tablet active Not Available Not Available No t Available Vitals None Recorded Social History None recorded. Functional Status None recorded. Mental Status None recorded. Family History Nothing Reported. Medical History No medical history recorded. Past Encounters Encounter ID Performer Location Encounter Start Date Encounter Closed Date Diagnosis/Indication Diagnosis SNOMED-CT Code Diagnosis ICD10 Code Diagnosis Note [id number] YESSENIA BERG [facility] [id number] [facility], [facility] [place] [address] 04/21/2024 16:02:24 04/21/2024 16:08:41 Bilateral subjective tinnitus of ears [id number] 872481 H93.13 Health Concerns Section Related Observation LastModified by Organization Gautam ls LastModified Time None Recorded Concern Status LastModified by Organization Details LastModified Time None Recorded Advance Directives Directive None Recorded Payers Insurance Date Sequence Insurance Name Policy Number Policy Garrison Covered Member ID Garrison Member ID Guarantor Name 05/16/2024 1 WILLIAMS: [place] [employer] [place] [employer] (PPO) [id number] Jerry Sanchez [id number] Jerry Sanchez Notes Date Note Type Note Provider Name and Address Organization Details Recorded Time 04/21/2024 text/html Mr. Sanchez was see n today for an audiologic evaluation due to long-standing ringing tinnitus bilaterally. He reports that his tinnitus has been ongoing approximately for 6-8 months. He denies hearing loss, drainage, aural fullness/pressure, and excessive noise exposure. Medical hx includes migraines and thyroid disease. Otoscopic inspection was unremarkable bilaterally. Audiometric testing revealed normal hearing thresholds with good word rec scores bilaterally. Type A Tympanogram bilaterally 1-Discussed findings with Mr. Sanchez. 2-Discussed coping strategies for tinnitus management. 3-F/u hearing testing as directed. JERRY SAAB, AUD [address] , [place], [address], [facility] - [place] & [place] 04/21/2024 16:25:59
[2025-03-04 08:04] LABS: Free T4 (Free Thyroxine) 1.66 ng/dl (0.78-2.19)
[2025-03-04 08:17] LABS: Thyroid Stimulating Hormone 0.24 uIU/mL (0.465-4.68)
[2025-03-05 13:13] LABS: Triiodothyronine (T3) Free 3.8 pg/mL (2.0-4.4)
[2025-03-12 21:09] LABS: Testosterone, Total, LC/MS 220 ng/dL (.)
== END 2025-03-04 23:59 | disposition home or self-care (01) ==
LOC: LAB 07:02
PROVIDERS: PCP Physician Assistant; Visit Provider Internal Medicine Endocrinology, Diabetes & Metabolism
DX: E89.0 Postprocedural hypothyroidism (principal); R79.89 Other specified abnormal findings of blood chemistry
CPT/HCPCS: 36415; 82670; 84403; 84439; 84443; 84481

== ENCOUNTER 2025-04-21 06:46 | Outpatient (CLI) | payer BC, OTHER, SELFPAY ==
--- OUTSIDE RECORDS SUMMARY | 2025-03-15 10:30 | XMS_ITS | Encounter Summary ---
Author Organization [facility] [place] [address] Care Team Providers Care Stiff Neck Loader Name Role Phone Nonstaff, Referring Primary Care Provider Mickey leslie Reason for Visit * Reason Comments Hypothyroidism Encounter Details Date Type Department Care Team (Late st Contact Info) Description 03/15/2025 10:30 AM EDT Office Visit [facility] [address] [place] [phone] Caden Farley MD [address] [place] [address] Low testosterone in male (Primary Dx); Hypothyroidism, postablative Social History Tobacco Use Types Packs/Day Years Used Date Smoking Tobacco: Former Smokeless Tobacco: Former Tobacco Cessation:Counseling Given: Not Answered Alcohol Use Standard Drinks/Week Comments Not Currently 0 (1 standard drink = 0.6 oz pur e alcohol) AUDIT-C Answer Date Recorded Q1: How often do you have a drink containing alc ohol? Never 03/03/2021 Average Number of Drinks Not on file 021 Frequency of Binge Drinking Not on file 04/2021 Sexually Active Control Partners Comments Yes Female Sex and Gender Information Value Date Recorded Sex Assigned at Not on file Legal Sex Male 2:38 PM EDT Gender Identity Not on file Sexual Orientation Not on file documented as of this encounter Last Filed Vital Signs Vital Sign Reading Time Taken Comments Blood Pressure 143/85 03/15/2025 10:41 AM EDT Pulse 85 03/15/2025 10:41 AM EDT Temperature - - Respiratory Rate 16 03/15/2025 10:4 1 AM EDT Oxygen Saturation - - Inhaled Oxygen Concentration - - Weight 114.7 kg (252 lb 12.8 oz) 2024 10:41 AM EDT Height 188 cm (6' 2 ) 03/15/2025 10:41 AM EDT Body Mass Index 32.46 03/15/2025 10:41 AM EDT documented in this encounter Ordered Prescriptions Prescription Sig Dispense Quantity Refills Last Filled Start Date End Date EUTHYROX 112 mcg Oral TabletIndications: Hypothyroidism, postablative Take 2 Tablets by mouth daily. 180 Tablet 3 03/15/2025 testosterone (ANDROGEL) 20.25 mg/1.25 gram (1.62 %) TD Gel in Metered-dose Pump Place 81 mg onto the skin daily. 4 pumps per day. Apply two pumps to each shoulder. Do not apply to chest. 150 g 5 03/15/2025 documented in this encounter Progress Notes * Caden Farley MD - 03/15/2025 10:30 AM EDT Subjective Subjective: Patient ID: Constantine Sanchez is a 39 y.o. male. Chief Complaint Patient presents with Hypothyroidism HPI: Constantine returns for follow up of hypothyroidism and low testosterone. He reports some improvement in symptoms since starting androgel without any side effects. He had labs done that I reviewed with him. PMSFH: Patients past medical, family and social histories were reviewed and updated. There were no changesexcept as noted. Review of Systems Constitutional: Negative for activity change, appetite change, chills, diaphoresis, fatigue and fever. HENT: Negative for congestion, dental problem, drooling, ear discharge, ear pain, facial swelling, hearing loss, mouth sores, nosebleeds, postnasal drip, rhinorrhea, sinus pressure, sore throat, tinnitus, trouble swallowing and voice change. Eyes: Negative for photophobia, pain, discharge, redness, itching and visual disturbance. Respiratory: Negative for apnea, cough, choking, chest tightness, shortness of breath and wheezing. Cardiovascular: Negative for chest pain, palpitations and leg swelling. Gastrointestinal: Negative for abdominal distention, abdominal pain, anal bleeding, constipation, diarrhea, nausea, rectal pain and vomiting. Endocrine: Negative for cold intolerance, heat intolerance, polydipsia, polyphagia and polyuria. Genitourinary: Negative for decreased urine volume, dysuria, flank pain, frequency, genital sores, hematuria and urgency. Musculoskeletal: Negative for back pain, gait problem, myalgias, neck pain and neck stiffness. Skin: Negative for color change, pallor, rash and wound. Allergic/Immunologic: Negative for environmental allergies, food allergies and immunocompromised state. Neurological: Negative for dizziness, tremors, seizures, facial asymmetry, speech difficulty, weakness, light-headedness, numbness and headaches. Hematological: Does not bruise/bleed easily. Psychiatric/Behavioral: Negative for agitation, behavioral problems, confusion, decreased concentration, dysphoric mood, hallucinations, self-injury, sleep disturbance and suicidal ideas. The patientis not nervous/anxious and is not hyperactive. Objective Current Outpatient Medications Medication Sig Dispense Refill ergocalciferol (DRISDOL) 1,250 mcg (50,000 unit) Oral Capsule Take 1 Capsule by mouth once a week. EUTHYROX 112 mcg Oral Tablet Take 2 Tablets by mouth daily. 180 Tablet 3 MAGNESIUM GLYCINATE ORAL Take by mouth. Glycinate 250 mg QD- Mag 45 mg QD. testosterone (ANDROGEL) 20.25 mg/1.25 gram (1.62 %) TD Gel in Metered-dose Pump Place 81 mg onto the skin daily. 4 pumps per day. Apply two pumps to each shoulder. Do not apply to chest. 150 g 5 valACYclovir (VALTREX) 1 gram Oral Tablet Take 1,000 mg by mouth as needed. No current facility-administered medications for this visit. Objective: DATA REVIEW: LABS Labs reviewed in chart, results discussed with patient. Labs from [facility] dated 02/24/21 reviewed. Thyroid hormone values are normal. No results found for: TSHREFLEX Lab Results Component Value Date TSH 0.860 03/05/2024 TSH 2.530 10/23/2023 TSH 1.970 09/02/2023 Lab Results Component Value Date FREET4 1.39 09/02/2024 FREET4 1.43 03/05/2024 FREET4 1.53 10/23/2023 Lab Results Component Value Date T3FREE 3.2 09/02/2024 T3FREE 3.1 10/23/2023 T3FREE 3.2 09/02/2023 No results found for: TPOAB IMAGING Vitals: 03/15/25 1041 BP: 143/85 Pulse: 85 Resp: 16 Weight: 252 lb 12.8 oz (114.7 kg) Height: 6' 2 (1.88 m) Body mass index is 32.46 kg/m??. Physical Exam Vitals and nursing note reviewed. Assessment and Plan: Diagnoses and all orders for this visit: Low testosterone in male - PROSTATE SPECIFIC ANTIGEN (TUMOR MARKER); Future; Expected date: 08/15/2025 (Before Next Appt) - CBC; Future; Expected date: 08/15/2025 (Before Next Appt) - TESTOSTERONE LEVEL TOTAL; Future; Expected date: 08/15/2025 (Before Next Appt) - ESTRADIOL LEVEL; Future - TESTOSTERONE LEVEL TOTAL; Future Hypothyroidism, postablative - EUTHYROX 112 mcg Oral Tablet; Take 2 Tablets by mouth daily. Dispense: 180 Tablet; Refill: 3 - T3 FREE; Future; Expected date: 08/15/2025 (Before Next Appt) - T4, FREE (THYROXINE); Future; Expected date: 08/15/2025 (Before Next Appt) - THYROID STIMULATING HORMONE; Future; Expected date: 08/15/2025 (Before Next Appt) Other orders - testosterone (ANDROGEL) 20.25 mg/1.25 gram (1.62 %) TD Gel in Metered-dose Pump; Place 81 mg ontothe skin daily. 4 pumps per day. Apply two pumps to each shoulder. Do not apply to chest. Dispense:150 g; Refill: 5 Assessment and Recommendations: Hypothyroidism well controlled on Levothyroxine 224 mcg daily. His thyroid hormone levels are normal. Low testosterone did respond well to clomiphene. He had appropriate increase in testosterone with 25 mg dose with associated improvement in symptoms. Due to lack of parts counterman safety data we started TRT after his testsoterone levels dropped again after stopping clomiphene. He has been tested for OSAwithin the past year and this was negative. His symptoms initially had some improvement with androgel but his testosterone level is still below normal with 2 pumps daily. I recommend increasing to 4 pumps daily. He will have a testosterone level checked in about four weeks. 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 Autoimmune testing and markers of inflammation were normal. Return to office: Return in about 6 months (around 09/15/2025) for Low testosterone. * Mariangel Costello RMA - 03/15/2025 10:30 AM EDT Pharmacy verified. Refills pending. Medication reconciliation complete. documented in this encounter Plan of Treatment Upcoming Encounters Date Type Department Care Team (Late st Contact Info) Description 09/13/2025 10:30 AM EST Office Visit [facility] [address] [place] [phone] Caden Farley MD [address] [place] [id number] Scheduled Orders Name Type Priority Associated Diagnoses Orde r Schedule T3 FREE Lab Routine Hypothyroidism, postablative Expected: 08/15/2025 (Approximate), Expires: 03/15/2026 T4, FREE (THYROXINE) Lab Routine Hypothyroidism, postablative Expected: 08/15/2025 (Approximate), Expires: 03/15/2026 THYROID STIMULATING HORMONE Lab Routine Hypothyroidism, postablative Expected: 08/15/2025 (Approximate), Expires: 03/15/2026 PROSTATE SPECIFIC ANTIGEN (TUMOR MARKER) Lab Routine Low testosterone in male Expected: 08/15/2025 (Approximate), Expires: 03/15/2026 CBC Lab Routine Low testosterone in male Expected: 08/15/2025 (Approximate), Expires: 03/15/2026 TESTOSTERONE LEVEL TOTAL Lab Routine Low testosterone in male Expected: 08/15/2025 (Approximate), Expires: 03/15/2026 ESTRADIOL LEVEL Lab Routine Low testosterone in male 1 Occurrences starting 03/15/2025 until 03/15/2026 TESTOSTERONE LEVEL TOTAL Lab Routine Low testosterone in male 1 Occurrences starting 03/15/2025 until 03/15/2026 documented as of this encounter Visit Diagnoses Diagnosis Low testosterone in male- Primary Hypothyroidism, postablative Other postablative hypothyroidism documented in this encounter Discontinued Medications Medication Sig Discontinue Reason Start Date End Da te EUTHYROX 112 mcg Oral TabletIndications:Hypothy roidism, postablative Take 2 Tablets by mouth daily. Reorder 03/09/2024 03/15/2025 testosterone (ANDROGEL) 20.25 mg/1.25 gram (1.62 %) TD Gel in Metered-dose Pump Place 40.5 mg onto the skin daily. 2 pumps per day. Apply one pump to each shoulder. Do not apply to chest. Reorder 11/10/2024 03/15/2025 documented as of this encounter Care Teams Stiff Neck Loader Relationship Specialty Start Date End Date Nonstaff, Referring PCP - General 03/03/21 documented as of this encounter
--- OUTSIDE RECORDS SUMMARY | 2025-04-21 06:49 | XMS_ITS | Encounter Summary ---
Author Organization Healthcare Address [address] [place] [address] Care Team Providers Care Supervisor Sewer System Name Role Phone None, None MARIN Primary Care Provider Patricia Grover Primary Care Provider [phone] Reason for Referral * Consultation (Routine) - Closed Specialty Diagnoses / Procedures Referred By Annette driver Referred To Contact Orthopaedic Surgery Diagnoses Pain in left hip Norm Watkins PA [address] [place] [address] Phone: tel: fax: Hood Swift MD [address] [facility] [address] [place] [address] Phone: tel: fax: Referral ID Status Reason Start Date Expiration Date V isits Requested Visits Authorized [id number] Closed Specialty Services Required 01/08/2023 07/09/2024 1 1 Encounter Details Date Type Department Care Team (Late st Contact Info) Description 01/08/2023 [facility] [address] [place] [address] Norm Watkins PA [address] [place] [address] Pain in left hip (Primary Dx) Social History Tobacco Use Types Packs/Day Years Used Date Smoking Tobacco: Never Assessed Sex and Gender Information Value Date Recorded Sex Assigned at Not on file Legal Sex Male 8:15 PM EDT Gender Identity Not on file Sexual Orientation Not on file documented as of this encounter Plan of Treatment Scheduled Referrals Name Type Priority Associated Diagnoses Order Schedule Ambulatory referral to General Orthopaedics Outpatient Referral Routine Pain in left hip Expected: 01/08/2023 (Approximate), Expires: 07/11/2024 documented as of this encounter Visit Diagnoses Diagnosis Pain in left hip- Primary documented in this encounter Care Teams Supervisor Sewer System Relationship Specialty Start Date End Date None, None, [place] [address] PCP - General 10/28/20 01/09/23 Patricia Perez PA [address] [place] [place] [address] PCP - General 01/10/23 documented as of this encounter
--- OUTSIDE RECORDS SUMMARY | 2025-04-21 06:49 | XMS_ITS | Data Portability ---
Author Organization [facility] ADMIN Address [address] [place] [phone] Assessment No assessment recorded. Plan of Treatment [...] audio gram No observ ation record ed. Not Available 2023 16:25:55 Result Notes None recorded. Problems Name Problem SNOMED Code Status Onset Date Resolution Date Notes Provider Name and Address Organization Details Recorded Time Bilateral subjective tinnitus of ears [id number] 104 Active 2023 JERRY SAAB, YESSENIA 1140 Formerly [facility], [place], [address] , [facility] & [place] 16:24:24 Problem Notes None recorded. Medical Equipment None Reported. [...] SNOMED-CT Code Diagnosis ICD10 Code Diagnosis Note [id number] YESSENIA BERG ENT Associate s [address], [facility] [place] [phone] 04/21/2024 16:02:24 04/21/2024 16:08:41 Bilateral subjective tinnitus of ears [id number] 874826 H93.13 Health Concerns Section Related Observation LastModified by Organization Detai ls LastModified Time None Recorded Concern Status LastModified by Organization Details LastModified Time None Recorded Advance Directives Directive None Recorded Payers Insurance Date Sequence Insurance Name Policy Number Policy Garrison Covered Member ID Garrison Member ID Guarantor Name 05/16/2024 1 [place] [id number] Jerry Sanchez [id number] Jerry Sanchez Notes Date Note Type [...] hearing testing as directed. JERRY SAAB, AUD 1140 Formerly [facility], [place], [address], [facility] - [place] & [place] 04/21/2024 16:25:59
--- OUTSIDE RECORDS SUMMARY | 2025-04-21 06:49 | XMS_ITS | Clinical Summary ---
Author Organization [facility] Address [address] [place] [address] Care Team Providers Care Pastry Cook Apprentice Name Role Phone Patricia Perez Primary Care Provider [phone] Allergies No known active allergies Medications levothyroxine (Synthroid, Levoxyl) 112 MCG tablet Take 2 tablets (224 mcg) by mouth 1 (one) time each day. 2 Active ergocalciferol 1.25 MG (62686 UT) capsule Take 1 capsule (50,000 Units) by mouth 1 (one) time per week. 3 Active Clomid 50 MG tablet 1 (one) time each day. 3 Active celecoxib (CeleBREX) 200 MG capsule Take 1 capsule (200 mg) by mouth 1 (one) time each day. Active acetaminophen (Tylenol) 500 MG tablet Take 2 tablets (1,000 mg) by mouth every 6 (six) hours if needed for pain. 100 tablet 3 Active methylPREDNISol one (Medrol Dospak) 4 MG tablets Follow schedule on package instructions 21 tablet 4 Active Active Problems Problem Noted Date Diagnosed Date Femoroacetabular impingement of left hip 023 Family History Medical History Relation Name Comments Cancer Other Heart Problem Other Hypertension Other Relation Name Status Comments Other Social History Tobacco Use Types Packs/Day Years Used Date Smoking Tobacco: Former Cigarettes 1.5 5 0 10/28/2004 - 10/28/2008 Smokeless Tobacco: Former Quit: 10/28/2009 Tobacco Cessation:Counseling Given: Not Answered Alcohol Use Standard Drinks/Week Comments Not Currently 0 (1 standard drink = 0.6 oz pur e alcohol) Sex and Gender Information Value Date Recorded Sex Assigned at Not on file Legal Sex Male 8:15 PM EDT Gender Identity Not on file Sexual Orientation Not on file Last Filed Vital Signs Vital Sign Reading Time Taken Comments Blood Pressure 133/79 11/17/2024 2:34 PM EST Pulse 74 11/05/2023 12:56 PM EST Temperature 36.8 C (98.2 F) 09/16/2023 4:45 PM EST Respiratory Rate 20 11/05/2023 12:56 PM EST Oxygen Saturation 96% 11/05/2023 12:56 PM EST Inhaled Oxygen Concentration - - Weight 109 kg (240 lb) 11/17/2024 2:34 PM EST Height 188 cm (6' 2 ) 11/17/2024 2:34 PM EST Body Mass Index 30.81 11/17/2024 2:34 PM EST Plan of Treatment Health Maintenance Due Date Last Done Comments [facility]-Depression Screening 1985 [facility]-HIV Screening 1985 [facility]-Hepatitis C Screening 1985 [facility]-/Child/Adol SDOH Screenings 1985 [facility]-Varicella Vaccines (1 of 2 - 13+ 2-dose series) 1998 [facility]-DTaP,Tdap,and Td Vaccines (2 - Tdap) 06/06/2000 06/05/2000 HPV Vaccines (1 - Male 3-dose series) 2000 [facility]-Hepatitis B Vaccines (2 of 3 - 3-dose series) 07/03/2000 06/05/2000 [facility]- SDOH Screenings 2003 [facility]-Adult SDOH Screenings 2003 [id number] Vaccine ( - 2023- season) 2024 [facility]-Influenza Vaccine (Season Ended) 2025 [facility]-Zoster Vaccines (1 of 2) 2035 [facility]-Obesity Intervention Completed 025, 08/21/2024, 11/05/2023, Additional history exists [facility]-HIB Vaccines Aged Out No longer e ligible based on patient's age to complete this topic [facility]-Hepatitis A Vaccines Aged Out No longer eligible based on patient's age to complete this topic [facility]-IPV Vaccines Aged Out No longer e ligible based on patient's age to complete this topic [facility]-Pneumococcal Vaccine: Pediatrics (0 to 5 Years) and At-Risk Patients (6 to 49 Years) Aged Out No longer eligible based on patient's age to complete this topic [facility]-Rotavirus Vaccines Aged Out No lo nger eligible based on patient's age to complete this topic Insurance [facility] Care Teams Pastry Cook Apprentice Relationship Specialty Start Date End Date Patricia Perez PA [address] [place] [address] PCP - General 01/10/23
--- OUTSIDE RECORDS SUMMARY | 2025-04-21 06:49 | XMS_ITS | Encounter Summary ---
Author Organization [facility] [place] [address] Care Team Providers Care Staff Nurse Name Role Phone Nonstaff, Referring Primary Care Provider Mickey leslie Encounter Details Date Type Department Care Team (Latest Contact Info) Description 03/11/2025 Travel Social History Tobacco Use Types Packs/Day Years Used Date Smoking Tobacco: Former Smokeless Tobacco: Former Alcohol Use Standard Drinks/Week Comments Not Currently [...] as of this encounter Plan of Treatment Upcoming Encounters Date Type Department Care Team (Late st Contact Info) Description 09/13/2025 10:30 AM EST Office Visit [facility] [place] [address] [facility] [address] [place] [address] Caden Farley MD [address] [place] [address] documented as of this encounter Visit Diagnoses Not on filedocumented in this encounter Care Teams Staff Nurse Relationship Specialty Start Date End Date Nonstaff, Referring PCP - General 03/03/21 documented as of this encounter
--- OUTSIDE RECORDS SUMMARY | 2025-04-21 06:49 | XMS_ITS | Clinical Summary ---
Author Organization [facility] Diabetes [facility] Address [address] [place] [address] Phone Care Team Providers Care Abatement Worker Name Role Phone Nonstaff, Referring Primary Care Provider Unavai lable Allergies No known active allergies Medications valACYclovir (VALTREX) 1 gram Oral Tablet Take 1,000 mg by mouth as needed. 0 Active ergocalciferol (DRISDOL) 1,250 mcg (50,000 unit) Oral Capsule Take 1 Capsule by mouth once a week. 3 Active MAGNESIUM GLYCINATE ORAL Take by mouth. Glycinate 250 mg QD- Mag 45 mg QD. Active testosterone (ANDROGEL) 20.25 mg/1.25 gram (1.62 %) TD Gel in Metered-dose Pump Place 81 mg onto the skin daily. 4 pumps per day. Apply two pumps to each shoulder. Do not apply to chest. 150 g 5 5 Active EUTHYROX 112 mcg Oral TabletIndications :Hypothyroidism, postablative Take 2 Tablets by mouth daily. 180 Tablet 3 5 Active Active Problems Patient Care Coordination No te Formatting of this note migh t be different from the original. Testosterone: (DO NOT DELETE) COV RDC Date of Last Contract / Agmt: 11/09/24 /RDC/ CRL Date of Last Cali: 03/15/2025 /RDC/ SL Problem Noted Date Diagnosed Date Hypothyroidism, postablative 09/14/2022 Encounters Date Type Department Care Team Description 03/15/2025 10:30 AM EDT Office Visit [facility] [place] [address] [facility] [address] [place] [address] Caden Farley MD Low testosterone in male (Primary Dx); Hypothyroidism, postablative 03/11/2025 Travel from Last 3 Months Medical History Medical History Date Comments Hyperthyroidism Hypothyroidism Family History Medical History Relation Name Comments Leukemia Father Thyroid Disease Maternal Grandfather Radha Alvarez Heart Attack Paternal Grandfather Ronit Sanchez Heart Failure Paternal Grandfather Ronit Sanchez High Blood Pressure Paternal Grandfather Ronit Sanchez Relation Name Status Comments Father Maternal Grandfather Radha Alvarez Mother Alive Paternal Grandfather Ronit Sanchez Social History Tobacco Use Types Packs/Day Years [...] on file Sexual Orientation Not on file Obstetrics History Last Filed Vital Signs Vital Sign Reading [...] Mass Index 32.46 03/15/2025 10:41 AM EDT Plan of Treatment Upcoming Encounters Date Type Department Care Team (Late st Contact Info) Description 09/13/2025 10:30 AM EST Office Visit [facility] [address] [facility] [address] [place] [id number] Caden Farley MD [address] [place] [address] Health Maintenance Due Date Last Done Comments Annual Wellness Exam 1988 DTaP/TDaP/Td (2 - Tdap) 06/06/2000 06/05/2000 Hepatitis B Vaccine (2 of 3 - 3-dose series) 07/03/2000 06/05/2000 COVID-19 Vaccine (2023-2 5 season) 2024 Influenza Vaccine (Season Ended) 2025 Meningococcal B Vaccine Aged Out No l onger eligible based on patient's age to complete this topic Pneumococcal Vaccine 0-49 Aged Out No longer eligible based on patient's age to complete this topic Procedures Procedure Name Priority Date/Time Associated Diagnosis Comments TESTOSTERONE LEVEL TOTAL Routine 03/04/2025 ESTRADIOL LEVEL Routine 03/04/2025 from Last 3 Months Results * ESTRADIOL LEVEL (03/04/2025) Estradiol 10.0 SEP OFFICE Comment:7.6-42.6 Blood VENOUS BLOOD / Unknown 03/04/2025 us Caden Farley MD CHEMISTRY ORDERABLES Final Re sult SEP OFFICE * TESTOSTERONE LEVEL TOTAL (03/04/2025) Testosterone Lvl 220 NG/DL SEP OFFICE Blood VENOUS BLOOD / Unknown 03/04/2025 us Caden Farley MD CHEMISTRY ORDERABLES Final Re sult SEP OFFICE from Last 3 Months Insurance [employer] PPO Care Teams Abatement Worker Relationship Specialty Start Date End Date Nonstaff, Referring PCP - General 03/03/21
--- OUTSIDE RECORDS SUMMARY | 2025-04-21 06:49 | XMS_ITS | Clinical Summary ---
Author Organization [facility] Address [address] [place], [place] [id number] Phone [email or web address] Care Team Providers Care Carrier Driver Name Role Phone Unavailable Primary Care Provider Unavailabl e Allergies No known active allergies Medications Euthyrox 200 MCG tablet Take 200 mcg by mouth 1 (one) time each day. 05/12/2020 Active Active Problems No known active problems Social History Tobacco Use Types Packs/Day Years Used Date Smoking Tobacco: Never Smokeless Tobacco: Never Intimate Partner Violence Answer Date R ecorded Insults You Not on file 02/07/2021 Threatens You Not on file 02/07/2021 Screams at You Not on file 02/07/2021 Physically Hurt Not on file 02/07/2021 Intimate Partner Violence Score Not on file 02/07/2021 Stress Answer Date Recorded Stress in your Life Not on file 08/31/2024 Dealing with Stress 3 08/31/2024 Sex and Gender Information Value Date Recorded Sex Assigned at Not on file Legal Sex Male 8:02 AM CDT Gender Identity Not on file Sexual Orientation Not on file Last Filed Vital Signs Vital Sign Reading Time Taken Comments Blood Pressure 134/81 01/25/2020 4:53 PM EDT Pulse 95 02/23/2022 12:54 PM EDT Temperature 36.6 C (97.8 F) 02/23/2022 12:54 PM EDT Respiratory Rate - - Oxygen Saturation 96% 02/23/2022 12:54 PM EDT Inhaled Oxygen Concentration - - Weight 102 kg (225 lb) 01/25/2020 4:53 PM EDT Height 188 cm (6' 2 ) 01/25/2020 4:53 PM EDT Body Mass Index 28.89 01/25/2020 4:53 PM EDT Plan of Treatment Health Maintenance Due Date Last Done Comments Dental Cleaning/Exam 1985 HIV Screening 1985 Hepatitis C Screening 1985 Annual Preventive Exam 2003 Hep B Infection Screening - Triple Screen 2003 Hepatitis B Immunization (1 of 3 - 19+ 3-dose series) 2004 Tetanus Diphtheria and Pertu ssis Immunization (1 - Tdap) 2004 Covid-19 Immunization (1 - 2 -25 season) 2024 Influenza Immunization (Seas on Ended) 2025 HIB Immunization Aged Out No longer e ligible based on patient's age to complete this topic HPV Immunization Aged Out No longer e ligible based on patient's age to complete this topic Hepatitis A Immunization Aged Out No longer eligible based on patient's age to complete this topic Pneumococcal: Ped (0 to 5 Yr s) and At-Risk Member (6 to 64 Yrs) Aged Out No longer e ligible based on patient's age to complete this topic Polio Immunization Aged Out No longer eligible based on patient's age to complete this topic Varicella Immunization Aged Out No lo nger eligible based on patient's age to complete this topic
[2025-04-21 08:09] LABS: Free T4 (Free Thyroxine) 1.36 ng/dl (0.78-2.19)
[2025-04-21 08:15] LABS: Basophils % 0.5 % (0.1-2.0); Eosinophils # 0.3 Kmm3 (0.0-0.4); Eosinophils % 4.7 % (0.1-12.0); Hematocrit 48.2 % (42.0-52.0); Hemoglobin 16.8 g/dL (14.1-18.0); Immature Granulocytes # 0.03 10^3uL; Immature Granulocytes % 0.5 %; Lymphocytes # 1.8 K/mm3 (0.7-4.5); Lymphocytes % 27.5 % (10-50); Mean Corpuscular HGB Conc 34.9 g/dL (31.8-35.4); Mean Corpuscular Hemoglobin 30.1 pg (27.0-31.2); Mean Corpuscular Volume 86.2 fl (80-94); Monocytes # 0.5 K/mm3 (0.1-1.0); Monocytes % 7.3 % (1.7-9.3); Neutrophils # 3.9 K/mm3 (1.8-7.8); Neutrophils % 59.5 % (37.0-80.0); Nucleated Red Blood Cells # 0 10^3/uL; Nucleated Red Blood Cells % 0 %; Platelet Count 296 K/mm3 (142-424); Red Blood Count 5.59 M/mm3 (4.60-6.20); Red Cell Distribution Width 12.7 % (11.5-17.5); Red Cell Distribution Width-SD 39.7 fL; White Blood Count 6.6 K/mm3 (4.8-10.8)
[2025-04-21 11:04] LABS: Prostate Specific Ag Screen 1.6 ng/ml (0.0-4.0); Thyroid Stimulating Hormone 1.13 uIU/mL (0.465-4.68)
[2025-04-22 10:12] LABS: Estradiol 26.5 pg/mL (7.6-42.6)
[2025-04-22 13:19] LABS: Triiodothyronine (T3) Free 3.3 pg/mL (2.0-4.4)
== END 2025-04-21 23:59 | disposition home or self-care (01) ==
LOC: LAB 06:47
PROVIDERS: PCP Physician Assistant; Visit Provider Internal Medicine Endocrinology, Diabetes & Metabolism
DX: E89.0 Postprocedural hypothyroidism (principal); R79.89 Other specified abnormal findings of blood chemistry
CPT/HCPCS: 36415; 82670; 84403; 84439; 84443; 84481; 85025; G0103

== ENCOUNTER 2025-09-06 06:45 | Outpatient (CLI) | payer BC, OTHER, SELFPAY ==
--- OUTSIDE RECORDS SUMMARY | 2025-09-06 06:47 | XMS_ITS | Clinical Summary ---
Author Organization [facility] Diabetes [facility] Address [address] [place] [address] Phone Care Team Providers Care Radiology Manager Name Role Phone Nonstaff, Referring Primary Care [...] to chest. 150 g 5 5 Active SYNTHROID 112 mcg Oral Tablet Take 2 Tablets by mouth daily. Brand-Medicall y necessary. 180 Tablet 3 5 Active Active Problems Patient Care Coordination No te Formatting of this note migh t be different from the original. Testosterone: (DO NOT DELETE) COV RDC Date of Last Contract / Agmt: 11/09/24 /RDC/ CRL Date of Last Cali: 03/15/2025 /RDC/ SL Problem Noted Date Diagnosed Date Hypothyroidism, postablative 09/14/2022 Encounters Date Type Department Care Team Description 07/22/2025 Telephone [facility] [place] [address] [facility] [address] [place] [address] Caden Farley MD Medication Management (SYNTHROID 112 mcg Oral Tablet) 07/19/2025 Orders Only [facility] [place] [address] [facility] [address] [place] [address] Caden Farley MD from Last 3 Months Medical History Medical [...] Description 09/13/2025 10:30 AM EST Office Visit [facility] [place] [address] [place] [address] Caden Farley MD [address] [place] [address] Health Maintenance Due Date Last Done Comments Annual Wellness Exam 1988 DTaP/TDaP/Td (2 - Tdap) 06/06/2000 06/05/2000 Hepatitis B Vaccine (2 of 3 - 3-dose series) 07/03/2000 06/05/2000 COVID-19 Vaccine (2024-2 6 season) 2025 Influenza Vaccine (#1) 2025 Meningococcal B Vaccine Aged Out No l onger eligible based on patient's age to complete this topic Pneumococcal Vaccine 0-49 Aged Out No longer eligible based on patient's age to complete this topic Insurance [employer] PPO Care Teams Radiology Manager Relationship Specialty Start Date End Date Nonstaff, Referring PCP - General 03/03/21
--- OUTSIDE RECORDS SUMMARY | 2025-09-06 06:48 | XMS_ITS | Encounter Summary ---
Author Organization [facility] [address] Care Team Providers Care Fuel Attendant Name Role Phone Nonstaff, Referring Primary Care Provider Mickey leslie Encounter Details Date Type Department Care Team (Late Contact Info) Description 07/19/2025 Orders Only [facility] [address] [facility] [address] [place], [place] [address] Caden Farley MD [address] [place] [address] Social History Tobacco Use Types Packs/Day Years [...] on file documented as of this encounter Ordered Prescriptions Prescription Sig Dispense Quantity Refills Last Filled Start Date End Date SYNTHROID 112 mcg Oral Tablet Take 2 Tablets by mouth daily. Brand-Medical ly necessary. 180 Tablet 3 07/19/2025 documented in this encounter Plan of Treatment Upcoming Encounters Date Type Department Care Team (Late st Contact Info) Description 09/13/2025 10:30 AM EST Office Visit [facility] [place] [address] [facility] [address] [place] [address] Caden Farley MD [address] [place] [address] documented as of this encounter Visit Diagnoses Not on filedocumented in this encounter Discontinued Medications Medication Sig Discontinue Reason Start Date End Da te EUTHYROX 112 mcg Oral TabletIndications:Hypothy roidism, postablative Take 2 Tablets by mouth daily. DELETE-Duplicate 03/15/2025 07/19/2025 documented as of this encounter Care Teams Fuel Attendant Relationship Specialty Start Date End Date Nonstaff, Referring PCP - General 03/03/21 documented as of this encounter
--- OUTSIDE RECORDS SUMMARY | 2025-09-06 06:48 | XMS_ITS | Encounter Summary ---
Author Organization [place] [address] Care Team Providers Care Postbed Stitcher Name Role Phone Nonstaff, Referring Primary Care Provider Mickey leslie Reason for Visit * Reason Onset Date Comments Medication Management 07/22/2025 SYNTHROID 112 mcg Oral Tablet Encounter Details Date Type Department Care Team (Late st Contact Info) Description 07/22/2025 Telephone [facility] [place] [address] [facility] [address] [place] [address] Caden Farley MD [address] [place] [address] Medication Management (SYNTHROID 112 mcg Oral Tablet) Social History Tobacco Use Types Packs/Day Years [...] on file documented as of this encounter Miscellaneous Notes * Telephone Encounter - Yesenia Urbina MA - 07/22/2025 1:19 PM EDT Faxed over confirmation that Dr. Farley is okay with the L-Thyroxine (Synthroid) TABS 112 mcg and take two tabs daily. Signed and faxed to [facility] 07/22/25. * Telephone Encounter - Guillermina Ulloa - 07/22/2025 9:34 AM EDT Florentin moon called regarding SYNTHROID 112 mcg Oral Tablet medication. That is not covered under his insurance. The recommenced the levothyroxine tablets instead. They will need a new script or verbal consent from provider. If you have any questions call back. Customer Rep: Shima Robison Ref: [id number] documented in this encounter Plan of Treatment Upcoming Encounters Date Type Department Care Team (Late st Contact Info) Description 09/13/2025 10:30 AM EST Office Visit [facility] Diabetes [place] [address] [address] Caden Farley MD [address] [place] [id number] documented as of this encounter Visit Diagnoses Not on filedocumented in this encounter Care Teams Postbed Stitcher Relationship Specialty Start Date End Date Nonstaff, Referring PCP - General 03/03/21 documented as of this encounter
--- OUTSIDE RECORDS SUMMARY | 2025-09-06 06:48 | XMS_ITS | Data Portability ---
Author Organization [facility] ADMIN Address [address] [place] [phone] Assessment No assessment recorded. Plan of Treatment [...] audio gram No observ ation record ed. [email or web address] Not Available 2023 16:25:55 Result Notes None recorded. Problems Name Problem SNOMED Code Status Onset Date Resolution Date Notes Provider Name and Address Organization Details Recorded Time Bilateral subjective tinnitus of ears 5513751327499 104 Active 2023 JERRY SAAB, YESSENIA [address] [facility], [place], [address] , [facility] & [place] 16:24:24 Problem Notes None recorded. Medical Equipment [...] Diagnosis SNOMED-CT Code Diagnosis ICD10 Code Diagnosis IMO Codes Diagnosis Note [id number] [facility] [address], [place] [phone] 04/21/2024 16:02:24 04/21/2024 16:08:41 Bilateral subjective tinnitus of ears [id number] H93.13 Health Concerns Section Related Observation LastModified by Organization Detai ls LastModified Time None Recorded Concern Status LastModified by Organization Details LastModified Time None Recorded Advance Directives Directive None Recorded Payers Insurance Date Sequence Insurance Name Policy Number Policy Garrison Covered Member ID Garrison Member ID Guarantor Name 05/16/2024 1 [place] [id number] Jerry Sanchez [id number] Jerry Sanchez Notes Date Note Type Note Provider Name and Address Organization Details Recorded Time 04/21/2024 text/html Mr. Sanchez was seen today for an audiologic evaluation due to [...] testing as directed. JERRY SAAB, AUD [address] [facility], [place], [address], [facility] - [place] & [place] 04/21/2024 16:25:59
--- OUTSIDE RECORDS SUMMARY | 2025-09-06 06:48 | XMS_ITS | Clinical Summary ---
Author Organization [facility] Address [address] [place] [address] Care Team Providers Care Electronic News Gathering Camera Person Name Role Phone Patricia Perez Primary Care Provider [phone] Allergies No known active allergies Medications levothyroxine (Synthroid, Levoxyl) 112 MCG tablet Take 2 tablets (224 mcg) by mouth 1 (one) time each day. 2 Active ergocalciferol 1.25 MG (58499 UT) capsule Take 1 capsule (50,000 Units) [...] C Screening 1985 [facility]-/Child/Adol SDOH Screenings 1985 FTU-[id number]-30 Vaccine (#1) 1990 [facility]Y-Varicella Vaccines (1 of 2 - 13+ 2-dose series) 1998 [facility]-DTaP,Tdap,and Td Vaccines (2 - Tdap) 06/06/2000 06/05/2000 UKY-Hepatitis B Vaccines (2 of 3 - 3-dose series) 07/03/2000 06/05/2000 UKY- SDOH Screenings 2003 UKY-Adult SDOH Screenings 2003 HPV Vaccines (1 - 3-dose SCDM series) 2012 UKY-Influenza Vaccine (#1) 2025 UKY-Zoster Vaccines (1 of 2) 2035 [...] patient's age to complete this topic Insurance [facility] Care Teams Electronic News Gathering Camera Person Relationship Specialty Start Date End Date Patricia Perez PA [address] [place] [address] PCP - General 01/10/23
--- OUTSIDE RECORDS SUMMARY | 2025-09-06 06:48 | XMS_ITS | Clinical Summary ---
Author Organization [facility] Address [address] [place], [place] [phone] Phone [email or web address] Care Team Providers Care Recording Engineer Name Role Phone Unavailable Primary Care Provider [...] HIV Screening 1985 Hepatitis C Screening 1985 HPV Immunization (1 - Male 3 -dose series) 2000 Annual Preventive Exam 2003 Hep B Infection Screening - Triple Screen 2003 Hepatitis B Immunization (1 of 3 - 19+ 3-dose series) 2004 Tetanus Diphtheria and Pertu ssis Immunization (1 - Tdap) 2004 Covid-19 Immunization (1 - 2 season) 2025 Influenza Immunization (#1) 2025 HIB Immunization Aged Out No longer e ligible based on patient's age to complete this topic Hepatitis A Immunization Aged Out No longer eligible based on patient's age to complete this topic Pneumococcal Immunization Aged Out No longer eligible based on patient's age to complete this topic Polio Immunization Aged Out No longer eligible based on patient's age to complete this topic Varicella Immunization Aged Out No lo nger eligible based on patient's age to complete this topic
--- OUTSIDE RECORDS SUMMARY | 2025-09-06 06:48 | XMS_ITS | Clinical Summary ---
Author Organization [facility] Address [address] [place] [address] Care Team Providers Care Electrical Sign Wirer Helper Name Role Phone Provider, No Known Primary Care Provider Unavail able Social History Tobacco Use Types Packs/Day Years Used Date Smoking Tobacco: Never Assessed Abuse Screen Answer Date Recorded Unsafe at Home or Work/School Not on file Feels Threatened by Someone? Not on file 08/2023 Does Anyone Keep You from Co ntacting Others or Doint Things Outside the Home? Not on file 08/07/2023 Physical Sign of Abuse Present Not on file 1 Housing Stability Answer Date Recorded Current Living Arrangements Not on file 07/28 Potentially Unsafe Housing Conditions Not on kartik e 08/07/2023 Family and Community Support Answer Juan e Recorded Help with Day-to-Day Activities Not on file 08/07/2023 Lonely or Isolated Not on file 08/07/2023 Employment Answer Date Recorded Do you want help finding or keeping work or a diego b? Not on file 08/07/2023 Disabilities Answer Date Recorded Concentrating, Remembering, or Making Decisions Difficulty Not on file 08/07/2023 Doing Errands Independently Difficulty Not on fi le 08/07/2023 Education Answer Date Recorded Help with school or training? Not on file Preferred Language Not on file 08/07/2023 Sex and Gender Information Value Date Recorded Sex Assigned at Not on file Legal Sex Male 12:37 PM EDT Gender Identity Not on file Sexual Orientation Not on file Plan of Treatment Health Maintenance Due Date Last Done Comments ANNUAL PHYSICAL 1985 HEPATITIS C SCREENING 1985 TDAP/TD VACCINES (1 - Tdap) 2004 INFLUENZA VACCINE 05/28/2025 Pneumococcal Vaccine 0-49 Aged Out No longer eligible based on patient's age to complete this topic Insurance [facility] PPO Care Teams Electrical Sign Wirer Helper Relationship Specialty Start Date End Date Provider, No Known [facility] [place] [address] PCP - General 06/21/16
--- OUTSIDE RECORDS SUMMARY | 2025-09-06 06:48 | XMS_ITS | Encounter Summary ---
Author Organization [facility] Address [address] [place] [address] Care Team Providers Care Disability Coordinator Name Role Phone None, None MARIN Primary Care Provider Patricia Grover Primary Care Provider [phone] Reason for Referral * Consultation (Routine) - Closed Specialty Diagnoses / Procedures Referred By Annette driver Referred To Contact Orthopaedic Surgery Diagnoses Pain in left hip Norm Watkins PA [address] [place] [address] Phone: tel: fax: Hood Swift MD [address] [facility] [address] [place] [address] Phone: tel: fax: Referral ID Status Reason Start Date Expiration Date V isits Requested Visits Authorized [id number] Closed Specialty Services Required 01/08/2023 07/09/2024 1 1 Encounter Details Date Type Department Care Team (Late st Contact Info) Description 01/08/2023 Community [facility] [address] [place] [address] Norm Watkins PA [address] [place] [address] Pain in left hip (Primary [...] Primary documented in this encounter Care Teams Disability Coordinator Relationship Specialty Start Date End Date None, None, [place] [address] PCP - General 10/28/20 01/09/23 Patricia Perez PA [address] [place] [address] PCP - General 01/10/23 documented as of this encounter
[2025-09-06 07:16] LABS: Hematocrit 47.2 % (42.0-52.0); Hemoglobin 17.0 g/dL (14.1-18.0); Immature Granulocytes % 0 %; Mean Corpuscular HGB Conc 36.0 g/dL (31.8-35.4); Mean Corpuscular Hemoglobin 30.3 pg (27.0-31.2); Mean Corpuscular Volume 84.1 fl (80-94); Nucleated Red Blood Cells % 0 %; Platelet Count 248 K/mm3 (142-424); Red Blood Count 5.61 M/mm3 (4.60-6.20); Red Cell Distribution Width-SD 38.1 fL; White Blood Count 5.5 K/mm3 (4.8-10.8)
[2025-09-06 07:56] LABS: Free T4 (Free Thyroxine) 1.33 ng/dl (0.78-2.19)
[2025-09-06 08:10] LABS: Thyroid Stimulating Hormone 0.92 uIU/mL (0.465-4.68)
[2025-09-07 11:25] LABS: Triiodothyronine (T3) Free 3.2 pg/mL (2.0-4.4)
== END 2025-09-06 23:59 | disposition home or self-care (01) ==
LOC: LAB 06:46
PROVIDERS: PCP Physician Assistant; Visit Provider Internal Medicine Endocrinology, Diabetes & Metabolism
DX: E89.0 Postprocedural hypothyroidism (principal); R79.89 Other specified abnormal findings of blood chemistry
CPT/HCPCS: 36415; 82670; 84403; 84439; 84443; 84481; 85025; G0103